=== PATIENT | male | born 1975 | race Caucasian/White ===

== ENCOUNTER 2021-12-22 15:43 | Inpatient (IN) | payer OTHER ==
[2021-12-22] MEDS ORDERED: DIAZEPAM 5 MG/ML 2 ML INJ IM ONE (19:04)
--- NOTE | 2021-12-22 19:10 | ED ---
General Adult HPI - General Chief complaint: Altered Mental Status Stated complaint: altered, possible dehydration Source: patient, family Mode of arrival: wheelchair Limitations: altered mental status - History of Present Illness Initial comments: 46-year-old male with diagnosis of neurosyphilis presents to the emergency room and altered mental status. Family is at bedside and provides the history. Patient had an episode of altered mental status last fall. He was taken into [facility] and workup diagnosed him as positive for neurosyphilis and dementia. Received 4 weeks worth of penicillin treatment through a PICC line. He was residing with friends in [place]. Father received a call approximately one month ago stating that his friends were having difficulty caring for him. Father drove out to [place] to bring the patient home. Originally upon arrival home the patient was adjusting well. He was eating drinking and had a fairly appropriate behavior. Over the past week the patient has become very agitated, paranoid. He has stopped eating and drinking almost completely. He is not on any current treatment. Does not follow with a neurologist. No other medical diagnoses. Remainder of the HPI is limited because the patient's current medical condition. - Related Data Home Medications Medication Instructions Recorded Confirmed No Known Home Medications 12/22/21 12/22/21 Allergies Allergy/AdvReac Type Severity Reaction Status Date / Time No Known Allergies Allergy Verified 12/22/21 21:18 Review of Systems ROS Statement: Those systems with pertinent positive or pertinent negative responses have been documented in the HPI. ROS Other: All systems not noted in ROS Statement are negative. Past Medical History Additional Past Medical History / Comment(s): Neuro syphillis- that caused dementia. History of Any Multi-Drug Resistant Organisms: None Reported Past Surgical History: No Surgical Hx Reported Past Psychological History: Anxiety, Depression Smoking Status: Former smoker Past Alcohol Use History: Occasional Past Drug Use History: None Reported General Exam Limitations: altered mental status Course Vital Signs 12/22/21 12/22/21 12/22/21 16:25 21:06 22:00 Pulse Rate 121 H 99 84 Respiratory 20 22 Rate Blood Pressure 135/96 121/84 O2 Sat by Pulse 96 99 97 Oximetry 12/22/21 22:46 Pulse Rate 80 Respiratory 22 Rate Blood Pressure 106/76 O2 Sat by Pulse 80 L Oximetry EKG Findings - EKG Comments: EKG Findings:: EKG demonstrates sinus tachycardia with a ventricular rate of 100. GA interval 127. QRS 90. QTC of 405. No acute ST segment elevations. Mild ST depression in 2, 3 and aVF Medical Decision Making - Medical Decision Making Upon arrival patient was placed into room 4. He is extremely agitated and unwilling to cooperate. He was given 10 mg of IM Valium for sedation which does not have any effect on the patient. He is then given 250 mg of IM ketamine. Laboratory studies, urinalysis and CT are performed. I did review the patient's labs. He does have 3+ ketones in the urine. CT of the brain is negative. Due to his agitation and altered mental status with dehydration did recommend admission. Spoke with Dr. Lagos. He feels the patient should be placed under an inpatient status. Because of this I did call and make an spoke with them in regards to admission for which they did accept. Patient is currently pending about on the floor - Lab Data Result diagrams: 12/22/21 21:03 12/22/21 21:03 Lab Results 12/22/21 12/22/21 12/22/21 Range/Units 21:03 21:03 21:03 WBC 8.3 (3.8-10.6) k/uL RBC 5.19 (4.30-5.90) m/uL Hgb 16.6 (13.0-17.5) gm/dL Hct 48.3 (39.0-53.0) % MCV 93.1 (80.0-100.0) fL MCH 31.9 (25.0-35.0) pg MCHC 34.2 (31.0-37.0) g/dL RDW 13.1 (11.5-15.5) % Plt Count 240 (150-450) k/uL MPV 7.4 Neutrophils % 80 % Lymphocytes % 15 % Monocytes % 4 % Eosinophils % 0 % Basophils % 1 % Neutrophils # 6.6 (1.3-7.7) k/uL Lymphocytes # 1.2 (1.0-4.8) k/uL Monocytes # 0.3 (0-1.0) k/uL Eosinophils # 0.0 (0-0.7) k/uL Basophils # 0.0 (0-0.2) k/uL PT 11.1 (9.0-12.0) sec INR 1.0 (<1.2) APTT 23.1 (22.0-30.0) sec Sodium 141 (137-145) mmol/L Potassium 4.1 (3.5-5.1) mmol/L Chloride 103 (98-107) mmol/L Carbon Dioxide 21 L (22-30) mmol/L Anion Gap 17 mmol/L BUN 18 (9-20) mg/dL Creatinine 1.06 (0.66-1.25) mg/dL Est GFR (CKD-EPI)AfAm >90 (>60 ml/min/1.73 sqM) Est GFR (CKD-EPI)NonAf 83 (>60 ml/min/1.73 sqM) Glucose 96 (74-99) mg/dL Calcium 9.8 (8.4-10.2) mg/dL Total Bilirubin 1.0 (0.2-1.3) mg/dL AST 34 (17-59) U/L ALT 24 (4-49) U/L Alkaline Phosphatase 66 (38-126) U/L Troponin I (0.000-0.034) ng/mL Total Protein 7.6 (6.3-8.2) g/dL Albumin 5.0 (3.5-5.0) g/dL Urine Color Urine Appearance (Clear) Urine pH (5.0-8.0) Ur Specific [place] (1.001-1.035) Urine Protein (Negative) Urine Glucose (UA) (Negative) Urine Ketones (Negative) Urine Blood (Negative) Urine Nitrite (Negative) Urine Bilirubin (Negative) Urine Urobilinogen (<2.0) mg/dL Ur Leukocyte Esterase (Negative) Urine RBC (0-5) /hpf Urine WBC (0-5) /hpf Hyaline Casts (0-2) /lpf Urine Mucus (None) /hpf Urine Opiates Screen (NotDetected) Ur Oxycodone Screen (NotDetected) Urine Methadone Screen (NotDetected) Ur Propoxyphene Screen (NotDetected) Ur Barbiturates Screen (NotDetected) U Tricyclic Antidepress (NotDetected) Ur Phencyclidine Scrn (NotDetected) Ur Amphetamines Screen (NotDetected) U Methamphetamines Scrn (NotDetected) U Benzodiazepines Scrn (NotDetected) Urine Cocaine Screen (NotDetected) U Marijuana (THC) Screen (NotDetected) 12/22/21 12/22/21 Range/Units 21:03 21:05 WBC (3.8-10.6) k/uL RBC (4.30-5.90) m/uL Hgb (13.0-17.5) gm/dL Hct (39.0-53.0) % MCV (80.0-100.0) fL MCH (25.0-35.0) pg MCHC (31.0-37.0) g/dL RDW (11.5-15.5) % Plt Count (150-450) k/uL MPV Neutrophils % % Lymphocytes % % Monocytes % % Eosinophils % % Basophils % % Neutrophils # (1.3-7.7) k/uL Lymphocytes # (1.0-4.8) k/uL Monocytes # (0-1.0) k/uL Eosinophils # (0-0.7) k/uL Basophils # (0-0.2) k/uL PT (9.0-12.0) sec INR (<1.2) APTT (22.0-30.0) sec Sodium (137-145) mmol/L Potassium (3.5-5.1) mmol/L Chloride (98-107) mmol/L Carbon Dioxide (22-30) mmol/L Anion Gap mmol/L BUN (9-20) mg/dL Creatinine (0.66-1.25) mg/dL Est GFR (CKD-EPI)AfAm (>60 ml/min/1.73 sqM) Est GFR (CKD-EPI)NonAf (>60 ml/min/1.73 sqM) Glucose (74-99) mg/dL Calcium (8.4-10.2) mg/dL Total Bilirubin (0.2-1.3) mg/dL AST (17-59) U/L ALT (4-49) U/L Alkaline Phosphatase (38-126) U/L Troponin I <0.012 (0.000-0.034) ng/mL Total Protein (6.3-8.2) g/dL Albumin (3.5-5.0) g/dL Urine Color Yellow Urine Appearance Clear (Clear) Urine pH 5.5 (5.0-8.0) Ur Specific [place] 1.037 H (1.001-1.035) Urine Protein 1+ H (Negative) Urine Glucose (UA) Negative (Negative) Urine Ketones 3+ H (Negative) Urine Blood Trace H (Negative) Urine Nitrite Negative (Negative) Urine Bilirubin 1+ H (Negative) Urine Urobilinogen 2.0 (<2.0) mg/dL Ur Leukocyte Esterase Negative (Negative) Urine RBC 1 (0-5) /hpf Urine WBC 1 (0-5) /hpf Hyaline Casts 5 H (0-2) /lpf Urine Mucus Rare H (None) /hpf Urine Opiates Screen Not Detected (NotDetected) Ur Oxycodone Screen Not Detected (NotDetected) Urine Methadone Screen Not Detected (NotDetected) Ur Propoxyphene Screen Not Detected (NotDetected) Ur Barbiturates Screen Not Detected (NotDetected) U Tricyclic Antidepress Not Detected (NotDetected) Ur Phencyclidine Scrn Not Detected (NotDetected) Ur Amphetamines Screen Not Detected (NotDetected) U Methamphetamines Scrn Not Detected (NotDetected) U Benzodiazepines Scrn Not Detected (NotDetected) Urine Cocaine Screen Not Detected (NotDetected) U Marijuana (THC) Screen Not Detected (NotDetected) Disposition Clinical Impression: Encephalopathy acute, Dehydration, Neurosyphilis Disposition: ADMITTED IP TO THIS [facility] Condition: Serious Is patient prescribed a controlled substance at d/c from ED?: No Referrals: None,Stated [Primary Care Provider] - 1-2 days Decision to Admit Reason: Admit from EC Decision Date: 12/22/21 Decision Time: 22:47
[2021-12-22] MEDS ORDERED: KETAMINE 50 MG/ML 10 ML VIAL IM ONE (20:18)
--- NOTE | 2021-12-22 21:02 | CT ---
EXAMINATION TYPE: CT brain wo con DATE OF EXAM: 12/22/2021 COMPARISON: None available HISTORY: AMS. hx of [employer] CT DLP: 1166.4 mGycm. Automated Exposure Control for Dose Reduction was Utilized. TECHNIQUE: CT scan of the head is performed without contrast. FINDINGS: There is no acute intracranial hemorrhage, mass effect, or midline shift identified. The ventricles and sulci are within normal limits in size. The globes are intact and the visualized sin uses are clear. IMPRESSION: No acute intracranial hemorrhage, mass effect, or midline shift is seen.
[2021-12-22 21:22] LABS: Appearance,Urine Clear (Clear); Bilirubin,Urine 1+ (Negative); Blood,Urine Trace (Negative); Color,Urine Yellow; Glucose,Urine (UA) Negative (Negative); Hyaline Casts,Urine 5 /lpf (0-2); Ketones,Urine 3+ (Negative); Leukocyte Esterase,Urine Negative (Negative); Mucus,Urine Rare /hpf; Nitrite,Urine Negative (Negative); PH, Urine 5.5 (5.0-8.0); Protein,Urine 1+ (Negative); RBC,Urine 1 /hpf (0-5); Specific Gravity,Urine 1.037 (1.001-1.035); WBC,Urine 1 /hpf (0-5)
[2021-12-22 21:22] LABS: Basophils % (A) 1 %; Eosinophils % (A) 0 %; HCT 48.3 % (39.0-53.0); HGB 16.6 gm/dL (13.0-17.5); Lymphocytes # (A) 1.2 k/uL (1.0-4.8); Lymphocytes % (A) 15 %; MCH 31.9 pg (25.0-35.0); MCHC 34.2 g/dL (31.0-37.0); MCV 93.1 fL (80.0-100.0); Mean Platelet Volume 7.4; Monocytes # (A) 0.3 k/uL (0-1.0); Monocytes % (A) 4 %; Neutrophils # (A) 6.6 k/uL (1.3-7.7); Neutrophils % (A) 80 %; Platelet Count 240 k/uL (150-450); RBC 5.19 m/uL (4.30-5.90); RDW 13.1 % (11.5-15.5); WBC 8.3 k/uL (3.8-10.6)
[2021-12-22 21:26] LABS: ALT 24 U/L (4-49); AST 34 U/L (17-59); African American GFR (CKD) >90 (>60 ml/min/1.73 sqM); Alkaline Phosphatase 66 U/L (38-126); Anion Gap 17 mmol/L; Blood Urea Nitrogen 18 mg/dL (9-20); Calcium 9.8 mg/dL (8.4-10.2); Carbon Dioxide 21 mmol/L (22-30); Chloride 103 mmol/L (98-107); Glucose 96 mg/dL (74-99); Non-African American GFR(CKD) 83 (>60 ml/min/1.73 sqM); Potassium 4.1 mmol/L (3.5-5.1); Sodium 141 mmol/L (137-145); Total Protein 7.6 g/dL (6.3-8.2)
[2021-12-22 21:30] LABS: Partial Thromboplastin Time 23.1 sec (22.0-30.0); Prothrombin Time 11.1 sec (9.0-12.0)
--- NOTE | 2021-12-22 21:30 | XR ---
EXAMINATION TYPE: XR chest 1V DATE OF EXAM: 12/22/2021 COMPARISON: NONE HISTORY: Altered mental status TECHNIQUE: Single frontal view of the chest is obtained. FINDINGS: There is no focal air space opacity, pleural effusion, or pneumothorax seen. The cardiac silhouette size is within normal limits. The osseous structures are intact. IMPRESSION: No acute process.
[2021-12-22 21:31] LABS: Amphetamine Screen,Urine Not Detected (NotDetected); Barbiturate Screen,Urine Not Detected (NotDetected); Benzodiazepines Screen,Urine Not Detected (NotDetected); Cocaine Screen,Urine Not Detected (NotDetected); Methadone Screen, Urine Not Detected (NotDetected); Opiate Screen,Urine Not Detected (NotDetected); Oxycodone Screen, Urine Not Detected (NotDetected); Phencyclidine Screen,Urine Not Detected (NotDetected); Tricyclic Antidepressant,Urine Not Detected (NotDetected); Urn Cannabinoid Scrn Not Detected (NotDetected)
[2021-12-22] MEDS ORDERED: LORazepam 2 MG/ML INJ IV STA (21:33)
[2021-12-22] MEDS ORDERED: LORazepam 2 MG/ML INJ IV PRN (22:47)
[2021-12-22] MEDS ORDERED: NALOXONE 0.4 MG/ML 1 ML VIAL IV PRN (22:47)
[2021-12-22] MEDS: SODIUM CHLORIDE 0.9% 1,000 ML IV SCH (22:54)
[2021-12-23] MEDS: LORazepam 2 MG/ML INJ IV PRN ×5 (00:06→21:54)
[2021-12-23] MEDS: SODIUM CHLORIDE 0.9% 1,000 ML IV SCH ×3 (06:55→23:28)
[2021-12-23 07:25] LABS: African American GFR (CKD) >90 (>60 ml/min/1.73 sqM); Anion Gap 12 mmol/L; Blood Urea Nitrogen 16 mg/dL (9-20); Carbon Dioxide 24 mmol/L (22-30); Chloride 105 mmol/L (98-107); Glucose 82 mg/dL (74-99); Non-African American GFR(CKD) >90 (>60 ml/min/1.73 sqM); Potassium 4.5 mmol/L (3.5-5.1); Sodium 141 mmol/L (137-145)
[2021-12-23 07:29] LABS: Basophils # (A) 0.1 k/uL (0-0.2); Basophils % (A) 1 %; Eosinophils # (A) 0.1 k/uL (0-0.7); Eosinophils % (A) 1 %; HCT 44.3 % (39.0-53.0); HGB 14.4 gm/dL (13.0-17.5); Lymphocytes # (A) 1.8 k/uL (1.0-4.8); Lymphocytes % (A) 22 %; MCHC 32.6 g/dL (31.0-37.0); Mean Platelet Volume 7.6; Monocytes # (A) 0.4 k/uL (0-1.0); Monocytes % (A) 5 %; Neutrophils # (A) 5.6 k/uL (1.3-7.7); Neutrophils % (A) 69 %; Platelet Count 208 k/uL (150-450); RBC 4.66 m/uL (4.30-5.90); RDW 12.5 % (11.5-15.5); WBC 8.1 k/uL (3.8-10.6)
[2021-12-23] MEDS ORDERED: ONDANSETRON 4 MG/2 ML VIAL IVP PRN (10:02)
[2021-12-23] MEDS ORDERED: FAMOTIDINE 20 MG TAB PO SCH (10:15)
--- NOTE | 2021-12-23 17:51 | P.CNNES ---
History of Present Illness Consult date: 12/23/21 Requesting physician: Felipa Mcclellan Reason for Consult: Acute encephalopathy, neurosyphilis History of Present Illness: Patient is a 46-year-old male was brought to the hospital yesterday at 3:43 PM by patient's father for altered mental status. Patient is sedated from medication because of agitation, slight irritable behavior. Patient's father provided all the history. Patient was diagnosed with dementia related to neurosyphilis in April 2021. He had developed mental status change, would easily get lost. He was hospitalized in [place] in [facility] from 04/26/2021 and discharged on 05/04/2021. Patient has presented with progressive dementia, behavioral problems. He was found to be positive for syphilis. He was diagnosed with neurosyphilis for which he received extended treatment with antibiotic. It was completed. Patient had an EEG performed in the hospital, which was reported as normal. Patient was recommended MRI of the brain, which according to the father was never performed. He had undergone physical therapy, behavioral cognitive therapy. He used to live with his frie nds, but they mentioned that they cannot take care of him therefore he moved back to [place] with his parents. Patient's father believes that his progressively getting worse. Patient is getting very confused, very excited, behaves defiant. He does not take care of his hygiene, not eating well, has not eaten since Friday. Patient gets aggressive towards his mother. He does not act as aggressive with his father. Vital signs on arrival blood pressure 135/96, pulse rate 121, temperature 97.7. Blood test shows normal CBC, PT/PTT, normal CMP, troponin. UA shows negative nitrite. Urine drug screen negative. CT head showed no acute hemorrhage, mass effect or midline shift. I personally reviewed CT of the head in agree with the findings. It does appear that patient has cerebral atrophy, more than patient's age. Chest x-ray shows no acute process. EKG was sinus tachycardia. Patient's father further mentioned that patient used to live with her parents until in his 20s he moved with his friend to [place]. He then moved to [place] for 3 years and then he again went back to [place]. 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 Patient denies alcohol or tobacco or any use of drugs. Review of Systems Patient denies any neck pain, back pain. No numbness or tingling. Denies heada jesus. No pain. Patient admits to having tiredness. Rest of review of systems patient did not cooperate with. ROS unobtainable: due to mental status Past Medical History Additional Past Medical History / Comment(s): Neuro syphillis- that caused dementia. History of Any Multi-Drug Resistant Organisms: None Reported Past Surgical History: No Surgical Hx Reported Past Anesthesia/Blood Transfusion Reactions: No Reported Reaction Past Psychological History: Anxiety, Depression Smoking Status: Former smoker Past Alcohol Use History: Occasional Past Drug Use History: None Reported Medications and Allergies Home Medications Medication Instructions Recorded Confirmed Type No Known Home Medications 12/22/21 12/22/21 History Allergies Allergy/AdvReac Type Severity Reaction Status Date / Time No Known Allergies Allergy Verified 12/22/21 21:18 Physical Examination - Vital Signs Vital Signs: Vital Signs Temp Pulse Pulse Resp BP BP Pulse Ox 12/23/21 07:56 18 12/23/21 07:27 97.7 F 59 L 18 106/75 100 12/22/21 23:35 64 18 111/73 12/22/21 22:46 80 22 106/76 80 L 12/22/21 22:00 84 22 121/84 97 12/22/21 21:06 99 20 135/96 99 12/22/21 16:25 121 H 96 Intake and Output 12/22/21 12/23/21 12/23/21 22:59 06:59 14:59 Intake Total 780 Balance 780 Intake: Intake, IV Titration 780 Amount Sodium Chloride 0.9% 1, 780 000 ml @ 130 mls/hr IV . Q7H42M [facility] Rx#:[id number] Other: Weight 65.771 kg 65.771 kg Patient is a middle aged male, who was sleeping when I arrived. On waking up, patient did answer appropriately, but becomes easily very irritable. Patient is alert awake oriented to time place and person. He knows it is December 2021 and that he is in [facility]. He knows he is in the Hospital and name of the current president. Detail cognitive function testing deferred. Speech and language functions are normal. Attention, concentration and fund of knowledge is adequate. Detail testing deferred. On cranial examination, pupils are round and reacting to light, visual dawkins are full on confrontation, extraocular muscles are intact with no nystagmus. Face is symmetric, tongue protrudes to the midline. Palatal elevation and sensation normal, hearing and shoulder shrug normal, facial sensation normal. Shoulder shrug normal. On muscle strength testing, there is no pronator drift and the strength is normal in arms and legs distally and proximally. Deep tendon reflexes are 3 at the biceps, brachioradialis, 2+ at the knees, 2 ankles and plantars are downgoing bilaterally. Sensory to touch is equal with no neglect. Cerebellar function showed no ataxia for [id number] testing. Tone and bulk of muscles normal. Gait not checked. On general examination, there is no carotid bruit or murmur, S1-S2 audible. Abdomen is soft nontender. No organomegaly, bowel sounds present. Chest is clear to auscultation. Peripheral pulses are present. No edema. Results - Laboratory Findings CBC and BMP: 12/23/21 06:44 12/23/21 06:44 Abnormal Lab Findings: Abnormal Labs 12/22/21 12/22/21 21:03 21:05 Carbon Dioxide 21 L Ur Specific [place] 1.037 H Urine Protein 1+ H Urine Ketones 3+ H Urine Blood Trace H Urine Bilirubin 1+ H Hyaline Casts 5 H Urine Mucus Rare H Assessment and Plan Assessment: * Altered mental status, likely due to dementia related to neurosyphilis diagnosed in April 2021. Patient has completed treatment of neurosyphilis while in [place]. * Dementia with behavioral disturbance. * Aggressive behavior, irritability due to above. Plan: * MRI brain with and without contrast * EEG * Psychiatry consultation * Obtain medical records from patient's neurologist in [place] and records from [facility] from previous admission. * Discussed with patient's dad in detail. * Dr. Daniel Marina Will resume neurology service in the morning. Thank you for the consult. Time with Patient: Greater than 30
[2021-12-23] MEDS: FAMOTIDINE 20 MG/2 ML VIAL IV SCH (20:07)
[2021-12-23] MEDS: HEPARIN SODIUM,PORCINE/PF 5,000 UNIT/0.5 ML SYRINGE SQ SCH (20:07)
--- NOTE | 2021-12-24 00:13 | P.HPIM ---
History of Present Illness H&P Date: 12/23/21 Chief Complaint: Altered mental status Patient is a 46-year-old male with a known history of recently treated neurosyphilis in May 2021 and subacute dementia secondary to neurosyphilis, anxiety/depression. History of smoking was brought to the hospital by his family due to altered mental status. Patient has been agitated and aggressive at times. Patient is currently lying in the bed and awake alert and is able to answer simple questions but seems to be confused. Patient has not been eating or drinking for the past 1 week. He is becoming paranoid and very agitated. Patient was recommended to get MRI and EEG by his neurologist. Patient does not have any fever or chills. No nausea or vomiting or diarrhea. No complaints of chest pain or shortness of breath Patient was previously in [place] and was taken to [facility] due to altered mental status and was found to have neurosyphilis. Patient received penicillin treatment for 4 weeks in May 2021. Patient's friends were not able to take care of him and his father drove to [place] to bring the patient home. Patient was raised up and [place]. Currently patient is not taking any medications. CT head showed no acute intracranial hemorrhage mass-effect or midline shift is seen. EKG showed sinus tachycardia. Laboratory data showed WBC 8.3 hemoglobin 16.6 and platelets 240 Sodium 141 potassium 4.1 chloride 103 bicarb is 21 BUN 17 and creatinine 1.06. Liver enzymes are not elevated troponin x1 negative and albumin 5.0 urinalysis is negative for infection and 3+ ketones. UDS negative Treponema pallidum antibody reactive. Review of Systems Complete review of systems could not be obtained from the patient except as per HPI. Past Medical History Additional Past Medical History / Comment(s): Neuro syphillis- that caused dementia. History of Any Multi-Drug Resistant Organisms: None Reported Past Surgical History: No Surgical Hx Reported Past Anesthesia/Blood Transfusion Reactions: No Reported Reaction Past Psychological History: Anxiety, Depression Smoking Status: Former smoker Past Alcohol Use History: Occasional Past Drug Use History: None Reported Medications and Allergies Home Medications Medication Instructions Recorded Confirmed Type No Known Home Medications 12/22/21 12/22/21 History Allergies Allergy/AdvReac Type Severity Reaction Status Date / Time No Known Allergies Allergy Verified 12/22/21 21:18 Physical Exam Vitals: Vital Signs Temp Pulse Pulse Resp BP BP Pulse Ox 12/23/21 07:56 18 12/23/21 07:27 97.7 F 59 L 18 106/75 100 12/22/21 23:35 64 18 111/73 12/22/21 22:46 80 22 106/76 80 L 12/22/21 22:00 84 22 121/84 97 12/22/21 21:06 99 20 135/96 99 12/22/21 16:25 121 H 96 Intake and Output 12/22/21 12/23/21 12/23/21 22:59 06:59 14:59 Intake Total 780 Balance 780 Intake: Intake, IV Titration 780 Amount Sodium Chloride 0.9% 1, 780 000 ml @ 130 mls/hr IV . Q7H42M [facility] Rx#:[id number] Other: Weight 65.771 kg 65.771 kg PHYSICAL EXAMINATION: Patient is lying in the bed. Awake alert but disoriented. HEENT: Normocephalic. Neck is supple. Pupils reactive. Nostrils clear. Oral cavity is dry.. Neck reveals no JVD, carotid bruits, or thyromegaly. CHEST EXAMINATION: Trachea is central. Symmetrical expansion. Lung dawkins clear to auscultation and percussion. CARDIAC: Normal S1, S2 with no gallops. No murmurs ABDOMEN: Soft. Bowel sounds normal. No organomegaly. No abdominal bruits. Extremities: reveal no edema. No clubbing or cyanosis Neurologically awake, alert, cognitive impairment. No gross focal deficits noted Skin: No rash or skin lesions. Psychiatric: Cooperative could not be assessed completely. Musculoskeletal: No joint swelling or deformity. Results CBC & Chem 7: 12/23/21 06:44 12/23/21 06:44 Labs: Abnormal Lab Results - Last 24 Hours (Table) 12/22/21 12/22/21 Range/Units 21:03 21:05 Carbon Dioxide 21 L (22-30) mmol/L Ur Specific [place] 1.037 H (1.001-1.035) Urine Protein 1+ H (Negative) Urine Ketones 3+ H (Negative) Urine Blood Trace H (Negative) Urine Bilirubin 1+ H (Negative) Hyaline Casts 5 H (0-2) /lpf Urine Mucus Rare H (None) /hpf Thrombosis Risk Factor Assmnt - DVT/VTE Prophylaxis DVT/VTE Prophylaxis: Pharmacologic Prophylaxis ordered - Choose All That Apply Any of the Below Risk Factors Present?: Yes Each Factor Represents 1 point: Age 41-60 years Thrombosis Risk Factor Assessment Total Risk Factor Score: 1 Thrombosis Risk Factor Assessment Level: Low Risk Assessment and Plan Assessment: Altered mental status/paranoid ideation possible dementia with behavioral changes History of neurosyphilis and was treated in May 2021 in [place]. Dehydration volume depletion refusing to take oral intake. DVT prophylaxis Heparin subcu Plan: Patient will be continued on IV hydration with normal saline and increase oral intake. We will get records from the previous hospital. MRI of the brain EEG was ordered and psychiatry was consulted as well. We will follow closely. D iscussed with his father at bedside in detail.
[2021-12-24] MEDS: LORazepam 2 MG/ML INJ IV PRN ×2 (07:47→22:18)
[2021-12-24] MEDS: FAMOTIDINE 20 MG/2 ML VIAL IV SCH ×2 (07:47→22:00)
[2021-12-24] MEDS: HEPARIN SODIUM,PORCINE/PF 5,000 UNIT/0.5 ML SYRINGE SQ SCH ×3 (07:47→22:00)
[2021-12-24] MEDS ORDERED: OLANZapine 10 MG VIAL IM PRN (14:39)
[2021-12-24] MEDS ORDERED: OLANZapine 5 MG TAB PO PRN (14:39)
--- NOTE | 2021-12-24 14:45 | EEG ---
ELECTROENCEPHALOGRAM REPORT DATE OF SERVICE: 12/24/2021 CLINICAL HISTORY: This is a 46-year-old gentleman with altered mental status. The video EEG is obtained to evaluate for seizure epileptiform activity. EEG TYPE: A routine 21-channel EEG is performed with video using the 10/20 electrode system. RELEVANT MEDICATION: The patient is not on any antiepileptic drug. DESCRIPTION: Wakefulness is obtained. During awake state, the background consists of 11 to 12 hertz activity. There is no physiological stage II sleep architecture. There is no focal slowing. Interictal and ictal: There is appearance of sharp-like activity over the right frontal consisting of 18 to 19 hertz without any evolution to other regions. Otherwise no seizure activity noted. ACTIVATION PROCEDURE: Photic stimulation did not evoke a posterior driving response. Hyperventilation was not performed. CLINICAL INTERPRETATION: This is a normal routine EEG. There is no focal slowing, clear epileptiform discharges or seizure on the EEG. Patient have intermittent sharp-like fast activity over the right frontal regions without evolution to seizures. Recommend prolonged EEG as outpatient for further characterization and to rule out any clear epileptiform discharges or seizures. Clinical correlation is recommended. MMODL / IJN: [id number] / MTDD
--- NOTE | 2021-12-24 14:45 | P.PN ---
Subjective Progress Note Date: 12/24/21 I am seeing the patient for the first time during this admission. It seems that patient has altered mental status with history of neurosyphilis and was treated in past. Per father he stated patient had syphilis while at [place], [place] in 2020 and received treatment then was discharged from hospital. He followed up with neurologist as outpatient. The father feels patient has fluctuation of mentation since he has moved back with his parents in the last 4 weeks. No seizure-like activity. Please refer to Dr. Rubin for further details. Objective - Vital Signs Vital signs: Vital Signs Temp 98.4 F 12/23/21 18:08 Pulse 96 12/24/21 07:10 Resp 17 12/24/21 07:10 BP 142/76 12/23/21 18:08 Pulse Ox 97 12/23/21 18:08 FiO2 Intake & Output 12/23/21 12/24/21 12/24/21 18:59 06:59 18:59 Other: # Voids 5 1 # Bowel Movements 1 - Exam GENERAL: The patient is lying in bed and is not in acute distress. NEUROLOGICAL: Limited because of his cooperation. Higher mental function: The patient is awake, alert, oriented to self. He stated he is in the hospital but stated it was general hospital. Correctly stated the current year. He stated the month is November 19. He correctly named objects (pen, watch, glasses). Patient is following simple commands. No aphasia and no neglect. Cranial nerves: EOM is tacking throughout the room. No facial droop. No dysarthria. Rest is limited because of his cooperation. Motor: The strength is hard to assess because of cooperation. He kept on saying nothing is wrong with me. Cerebellum: Unable to assess. Sensation: Unable to assess. 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 Patient has completed treatment of neurosyphilis while in [place]. * Dementia with behavioral disturbance. * Aggressive behavior, irritability due to above. Plan: * MRI brain with and without contrast is pending * EEG is ordered and pending * Ordered TSH, vitamin B12, folate, ammonia level, HIV, herpes 1/2 PCR, syphilis. * Consulted I.D. team. * Psychiatry is consulted. * Obtain medical records from patient's neurologist in [place] and records from [facility] from previous admission. * Will defer the rest of medical management to the primary team. The plan is discussed with the patient's father, psyhciatry team and his nurse. Daniel Marina M.D. Neuro-Hospitalist Time with Patient: Less than 30
--- NOTE | 2021-12-24 14:53 | P.CN ---
Psychiatric Consult - . Consult date: 12/24/21 Consult:: 12/24/21 14:50 IDENTIFYING DATA: This patient is a single, unemployed, 46-year-old male with significant history of neurosyphilis presents to the hospital on 12/22/2021, brought into the hospital for altered mental status. HISTORY OF PRESENT ILLNESS: The patient presented to the hospital on 12/22/2021, brought into the hospital by his family for altered mental status and possible dehydration. The patient has a significant history of neurosyphilis and recently relocated to [place] approximately 4 weeks ago after residing and receiving treatment in [place]. Present at the patient's bedside is his father Otto Alegria who provides collateral information. Proximally 4 weeks ago, the patient's father received a call from the patient's friends that they have been unable to properly take care of the patient. His father drove out to [place] to bring the patient home. The patient was noted to have a significant decline in behavior including increasing agitation, confusion, and a significantly decreased appetite and thirst. As per collateral information obtained by the patient's father, the patient was diagnosed and worked up for neurosyphilis and dementia at [facility] in [place]. He received 4 weeks worth the penicillin treatment through a PICC line. In regards to psychiatric symptoms, the patient vehemently denying any issues regarding his mood or any overt symptoms of psychosis. However, the patient's father reports that the patient has been engaging in conversations with people who were not present and appears to respond to internal stimuli. He also rep orts that the patient has been increasingly agitated. Of concern, the patient has also had a significant decline in his thirst and appetite. The patient has reportedly not been eating over the past few days. The patient does report periods of excessive energy however is vague and is unable to determine how many days he has gone without any sleep. Both patient and his father report no significant history of psychiatric illness prior to the diagnosis of neurosyphilis. The patient vehemently denies any heavy alcohol use, drug use, or any other substance use. The patient does remain guarded regarding his sexual history. He refuses to elaborate. PAST PSYCHIATRIC HISTORY: Patient has no significant psychiatric history. Patient denies being on any psychiatric medications. Patient denies any previous psychiatric hospitalizations. Patient denies any psychiatric outpatient follow- up. Patient denies any history of suicide attempts in the past. PAST MEDICAL HISTORY: Additional Past Medical History / Comment(s): Neuro syphillis- that caused dementia. History of Any Multi-Drug Resistant Organisms: None Reported Past Surgical History: No Surgical Hx Reported Past Anesthesia/Blood Transfusion Reactions: No Reported Reaction Past Psychological History: Anxiety, Depression Smoking Status: Former smoker Past Alcohol Use History: Occasional Past Drug Use History: None Reported ALLERGIES: NO KNOWN DRUG ALLERGIES CHEMICAL DEPENDENCY HISTORY: Patient denies any tobacco, alcohol, marijuana, or illicit drug use. FAMILY PSYCHIATRIC/SUBSTANCE USE HISTORY: No reported family psychiatric history. SOCIAL HISTORY: Patient was residing in [place] and recently relocated back to [place] approximately 4 weeks ago after his friends contacted the patient's family stating that they were no longer able to take care of him due to his decline in mentation and behavior. 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 The patient refuses to elaborate on any sexual history. MENTAL STATUS EXAM: General Appearance: Patient appears to be stated age is alert however appears to be an uncooperative. Slightly disheveled hygiene and grooming. Poor eye contact. Behavior: Patient is lying down in bed and displays elevated psychomotor activity. Speech: Patient's speech is nonspontaneous, minimal, jude. Mood/Affect: Patient reports their mood is "I'm doing fine. I don't need any help." Affect is irritable. Suicidality/Homicidality: Patient is currently denying any suicidal or homicidal ideation. Perceptions: Patient is currently denying any auditory or visual hallucinations. Though content/process: The patient is not endorsing any delusional thought content. Memory and concentration: Patient is alert and oriented to person, place, however incorrectly states the date. Judgment and insight: poor IMPRESSIONS: Neurosyphilis Mood disorder, unspecified - suspect bipolar symptoms secondary to neurosyphilis PLAN: -Agree with medical and neurological evaluation. -At this time patient DOES meet criteria for inpatient psychiatric admission once he is medically and neurologically cleared. The patient's father agrees to sign a petition for mental health treatment for this patient as the patient expresses no desire to engage in any mental health services or any neurological evaluation. -Would recommend the following medication changes/additions: At this time, the patient does have a return of his medications. We will start Risperdal 1 mg by mouth twice a day for mood stabilization. Zyprexa when necessary for agitation -Recommend one-to-one sitter for safety. -Cannot leave AMA at this time. Patient will need a petition and certification if attempting to leave AMA. -Will continue to follow along 12/24/21 14:53
[2021-12-24] MEDS: risperiDONE 1 MG TAB PO SCH (22:00)
[2021-12-24] MEDS: SODIUM CHLORIDE 0.9% 1,000 ML IV SCH ×2 (23:37→23:38)
--- NOTE | 2021-12-24 23:38 | P.PN ---
Subjective Progress Note Date: 12/24/21 Patient is a 46-year-old male with a known history of recently treated neurosyphilis in May 2021 and subacute dementia secondary to neurosyphilis, anxiety/depression. History of smoking was brought to the hospital by his family due to altered mental status. Patient has been agitated and aggressive a t times. Patient is currently lying in the bed and awake alert and is able to answer simple questions but seems to be confused. Patient has not been eating or drinking for the past 1 week. He is becoming paranoid and very agitated. Patient was recommended to get MRI and EEG by his neurologist. Patient does not have any fever or chills. No nausea or vomiting or diarrhea. No complaints of chest pain or shortness of breath Patient was previously in [place] and was taken to [facility] due to altered mental status and was found to have neurosyphilis. Patient received penicillin treatment for 4 weeks in May 2021. Patient's friends were not able to take care of him and his father drove to [place] to bring the patient home. Patient was raised up and [place]. Currently patient is not taking any medications. CT head showed no acute intracranial hemorrhage mass-effect or midline shift is seen. EKG showed sinus tachycardia. Laboratory data showed WBC 8.3 hemoglobin 16.6 and platelets 240 Sodium 141 potassium 4.1 chloride 103 bicarb is 21 BUN 17 and creatinine 1.06. Liver enzymes are not elevated troponin x1 negative and albumin 5.0 urinalysis is negative for infection and 3+ ketones. UDS negative Treponema pallidum antibody reactive. 12/21/2021. Patient is currently lying in the bed. Awake alert but could not provide any history at this time. No complaints of chest pain or shortness breath. No other acute overnight issues. Patient was agitated at times. Patient undergoing neurological work-up including EEG and MRI of the brain pending at this time. Neurology is on board. Patient was seen by psychiatry and recommended inpatient psychiatric admission. Continue with Risperdal and Zyprexa as needed. Laboratories are reviewed. Current medications reviewed. Objective - Vital Signs Vital signs: Vital Signs Temp 98.0 F 12/24/21 19:34 Pulse 88 12/24/21 19:34 Resp 18 12/24/21 19:34 BP 130/79 12/24/21 19:34 Pulse Ox 100 12/24/21 19:34 FiO2 Intake & Output 12/24/21 12/24/21 12/25/21 06:59 18:59 06:59 Intake Total 1080 Balance 1080 Intake: Oral 1080 Other: # Voids 1 4 - Exam PHYSICAL EXAMINATION: Patient is lying in the bed. Awake alert but disoriented. HEENT: Normocephalic. Neck is supple. Pupils reactive. Nostrils clear. Oral cavity is dry.. Neck reveals no JVD, carotid bruits, or thyromegaly. CHEST EXAMINATION: Trachea is central. Symmetrical expansion. Lung dawkins clear to auscultation and percussion. CARDIAC: Normal S1, S2 with no gallops. No murmurs ABDOMEN: Soft. Bowel sounds normal. No organomegaly. No abdominal bruits. Extremities: reveal no edema. No clubbing or cyanosis Neurologically awake, alert, cognitive impairment. No gross focal deficits n oted Skin: No rash or skin lesions. Psychiatric: Cooperative could not be assessed completely. Musculoskeletal: No joint swelling or deformity. - Labs CBC & Chem 7: 12/23/21 06:44 12/23/21 06:44 Assessment and Plan Assessment: Altered mental status/paranoid ideation possible dementia with behavioral changes History of neurosyphilis and was treated in May 2021 in [place]. Dehydration volume depletion refusing to take oral intake. DVT prophylaxis Heparin subcu Plan: Patient will be continued on IV hydration with normal saline and increase oral intake. We will get records from the previous hospital. MRI of the brain EEG was ordered and psychiatry was consulted . Patient was started on Risperdal twice daily and Zyprexa as needed. Patient does meet inpatient psychiatric admission criteria. Currently was admitted. One-to-one sitter. We will follow closely. Discussed with his father at bedside in detail. Time with Patient: Greater than 30
--- NOTE | 2021-12-25 00:01 | P.CONS ---
History of Present Illness - Reason for Consult Consult date: 12/24/21 - History of Present Illness Patient is a 46-year-old male who was diagnosed with a neurosyphilis end of April 2021 in [place] for which the patient has been treated with IV benzathine penicillin x2 weeks followed by a dose of intramuscular benzathine penicillin a week later, patient denies having any new sexual partner after his episode of neurosyphilis patient presented to the [facility] ER on 12/22/2021 for evaluation of mental status changes, apparently the patient has not been eating or drinking patient becomes very agitated and paranoid no clear history of any fever or any chills with the symptoms the patient was evaluated on arrival to the ER the patient was afebrile and no fever had been recorded subsequently patient did have normal white count with no left shift kidney function has been normal liver enzymes are normal urine has been negative drug screen was negative Treponema pallidum antibodies came back positive patient did have a CT of the brain no acute intracranial hemorrhage or mass- effect infectious disease was consulted due to concern for history of neurosyphilis and continuation of confusion Past Medical History Additional Past Medical History / Comment(s): Neuro syphillis- that caused dementia. History of Any Multi-Drug Resistant Organisms: None Reported Past Surgical History: No Surgical Hx Reported Past Anesthesia/Blood Transfusion Reactions: No Reported Reaction Past Psychological History: Anxiety, Depression Smoking Status: Former smoker Past Alcohol Use History: Occasional Past Drug Use History: None Reported Medications and Allergies Home Medications Medication Instructions Recorded Confirmed Type No Known Home Medications 12/22/21 12/22/21 History Allergies Allergy/AdvReac Type Severity Reaction Status Date / Time No Known Allergies Allergy Verified 12/22/21 21:18 Physical Exam Vitals: Vital Signs Temp Pulse Resp BP Pulse Ox 12/24/21 07:10 96 17 12/23/21 18:08 98.4 F 96 17 142/76 97 Intake and Output 12/23/21 12/24/21 12/24/21 22:59 06:59 14:59 Other: # Voids 5 1 # Bowel Movements 1 Results CBC & Chem 7: 12/23/21 06:44 12/23/21 06:44 Labs: Abnormal Lab Results - Last 24 Hours (Table) 12/23/21 Range/Units 06:44 Treponema pallidum Ab Reactive A (Nonreactive) Assessment and Plan Plan: 1patient with a history of neurosyphilis for which the patient seem to have received adequate antibiotic therapy in May 2021 now presented to the hospital with some confusion and decreased oral intake patient currently with no fever did not have elevated white count no evidence of any neck rigidity and the patient mention no new sexual partners. 2we will check inflammatory markers and HIV testing. 3recommending CSF examination and will check CSF VDRL. Father at the bedside multiple questions were answered in layman term We will follow on clinical condition and cultures to further adjust medication if needed Thank you for this consultation will follow this patient along with you Time with Patient: Greater than 30
[2021-12-25] MEDS: LORazepam 2 MG/ML INJ IV PRN ×2 (02:19→11:47)
[2021-12-25 06:28] LABS: HIV 2 AB Non-Reactive (Non-Reactive); HIV AB P24 Non-Reactive (Non-Reactive); HIV P24 AG Non-Reactive (Non-Reactive)
[2021-12-25] MEDS: SODIUM CHLORIDE 0.9% 1,000 ML IV SCH ×3 (07:02→21:19)
[2021-12-25] MEDS: FAMOTIDINE 20 MG/2 ML VIAL IV SCH ×2 (10:25→21:03)
[2021-12-25] MEDS: HEPARIN SODIUM,PORCINE/PF 5,000 UNIT/0.5 ML SYRINGE SQ SCH ×2 (10:26→21:07)
[2021-12-25] MEDS: risperiDONE 1 MG TAB PO SCH ×2 (10:26→21:07)
--- NOTE | 2021-12-25 11:38 | P.PAINCN ---
History of Present Illness - Reason for Consult Consult date: 12/25/21 - Chief Complaint Consult for neurosyphilis - History of Present Illness Otto is a 46-year-old gentleman presented to the hospital for confusion. His a history of neurosyphilis and I will consult her to do a lumbar puncture. He has some confusion, he appears to ask some questions but his answers are not very congruent. He denies ever having a lumbar puncture in the past but was treated for neurosyphilis in [place] so it's unlikely that he did not have a lumbar puncture at the time. He is not on any blood thinning medications. He last ate at around 10:15 this morning. He is scheduled to have an MRI of the brain today at 2:15. Review of Systems Constitutional: Reports chronic headaches, Reports malaise Respiratory: Denies cough Gastrointestinal: Denies abdominal pain, Denies diarrhea, Denies nausea, Denies vomiting Neurological: Reports change in mentation, Reports confusion Past Medical History Additional Past Medical History / Comment(s): Neuro syphillis- that caused dementia. History of Any Multi-Drug Resistant Organisms: None Reported Past Surgical History: No Surgical Hx Reported Past Anesthesia/Blood Transfusion Reactions: No Reported Reaction Past Psychological History: Anxiety, Depression Smoking Status: Former smoker Past Alcohol Use History: Occasional Past Drug Use History: None Reported Medications and Allergies Home Medications Medication Instructions Recorded Confirmed Type No Known Home Medications 12/22/21 12/22/21 History Allergies Allergy/AdvReac Type Severity Reaction Status Date / Time No Known Allergies Allergy Verified 12/22/21 21:18 Physical Exam Vitals: Vital Signs Temp Pulse Resp BP Pulse Ox 12/25/21 08:00 86 16 12/25/21 01:39 97.6 F 86 16 135/85 100 12/24/21 20:00 16 12/24/21 19:34 98.0 F 88 18 130/79 100 Intake and Output 12/24/21 12/25/21 12/25/21 22:59 06:59 14:59 Intake Total 1080 Balance 1080 Intake: Oral 1080 Other: # Voids 2 Patient was not open to examination, he appeared to be awake and alert but not oriented. His answers were slightly confusing. He appears to be moving his extremities equally. No meaningful physical exam was completed. Results CBC & Chem 7: 12/23/21 06:44 12/23/21 06:44 Labs: Abnormal Lab Results - Last 24 Hours (Table) 12/23/21 Range/Units 06:44 RPR Reactive A (Non-Reactive) Assessment and Plan Assessment: #1 altered mental status #2 history of neurosyphilis Plan: I spoke with the patient and explained the test including lumbar puncture and MRI. The reports that he does not want anything done especially being poked anymore. This point I am unsure if we aren't able to do this without being able to consent him. The psychiatrist has mentioned that the patient cannot leave AMA. I think he does need some clarity from the admitting physician about whether or not we can safely do this procedure without his consent. Either way, since he had breakfast at about 10:15 the procedure cannot be done with sedation until after 6 PM this evening. He is scheduled to have an MRI at 2:15. If we are able to do it sometime this evening Dr. Hdez is freezer person and may be able to assist with the procedure. If it cannot be performed today, we can try tomorrow or . PQRS Measure Charge Sheet Measure #130: Documentation of Current Meds in Medical Chart: Patient's medications documented in chart PQRS Narrative: Do You Want the Pneumonia No Vaccine AT THIS TIME? Blood Pressure [Left Arm] 135/85 Blood Pressure 106/76 Pain Intensity [None] 0 Pain Intensity 0 Scale Used Numeric (1 - 10) Home Medications: Ambulatory Orders No Known Home Medications 12/22/21
--- NOTE | 2021-12-25 13:02 | MR ---
EXAMINATION TYPE: MR brain wo/w con DATE OF EXAM: 12/25/2021 COMPARISON: CT brain 12/22/2021 HISTORY: Altered mental status, dementia TECHNIQUE: Multiplanar, multisequence images of the brain and brainstem is performed without and with IV contras t, utilizing 6.5 mL intravenous Gadavist . FINDINGS: Some motion is present. Diffusion weighted images demonstrate no evidence of a recent infarct or other diffusion abnormality. There is no extra-axial fluid collection or significant white matter signal abnormality, some mild nonspecific periventricular hyperintensity on inversion recovery T2-weighted sequences noted. The ve ntricular system and cisternal spaces are normal in size and appearance. There is cortical atrophy pr esent as on CT. Midline structures demonstrate normal morphology, partially empty sella is noted. The craniocervical junction appears within normal limits. Post contrast images demonstrate no abnormal enhancement. Th e dural venous sinuses appear patent. The visualized sinuses are clear and the globes are intact. IMPRESSION: No acute abnormality is evident.
--- NOTE | 2021-12-25 13:10 | P.PN ---
Progress Note - Text Progress Note Date: 12/25/21 Attempted to evaluate the patient but he is currently undergoing MRI. Chart reviewed - patient is refusing prescribed risperdal. Psychiatry will attempt to re-evaluate the patient tomorrow. Mamadou Bermudez MD
--- NOTE | 2021-12-25 17:24 | P.PN ---
Progress Note - Text Progress Note Date: 12/25/21 Attempt to get consent for lumbar puncture, patient refused to sign the consent for lumbar puncture, he said , he may change his mind tomorrow , and we explained to the patient that tomorrow Gopi is scheduled to be difficult to fit him in and is scheduled, because the operating room schedule is extremely busy, and the best time is to do it today, patient refused to have it done tonight.
--- NOTE | 2021-12-25 18:22 | P.PN ---
Subjective Progress Note Date: 12/25/21 The patient is seen at bedside and per nurse he is refusing Lumbar puncture. Upon seeing him he was asleep. Objective - Vital Signs Vital signs: Vital Signs Temp 97.6 F 12/25/21 01:39 Pulse 86 12/25/21 08:00 Resp 16 12/25/21 08:00 BP 135/85 12/25/21 01:39 Pulse Ox 100 12/25/21 01:39 FiO2 Intake & Output 12/24/21 12/25/21 12/25/21 18:59 06:59 18:59 Intake Total 1080 Balance 1080 Intake: Oral 1080 Other: # Voids 4 2 - Exam GENERAL: The patient is lying in bed and is not in acute distress. NEUROLOGICAL: Limited because since asleep. SOME OF THE WORK-UP: Finding B12 was 579 Serum folate was more than 20 TSH is 0.79. HIV 1 and 2 antibody is nonreactive. Treponema pallidum antibody and RPR is reactive titer is 1:128 Routine EEG is normal. There is no focal slowing, epileptiform discharges or seizure on EEG. MR the brain is reported as no acute abnormality is evident. 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 Patient has completed treatment of neurosyphilis while in [place]. * Dementia with behavioral disturbance. * Aggressive behavior, irritability due to above. Plan: * I.D. team is on board and recommended lumbar puncture but patient refused. * Treponema pallidum antibody and RPR is reactive titer is 1:128 * Consider ambulatory 2.5 hour EEG as outpatient if continues altered. * Psychiatry is on board. * Obtain medical records from patient's neurologist in [place] and records from [facility] from previous admission. * Will defer the rest of medical management to the primary team. * Patient needs to follow-up with neurologist and I.D. team as outpatient within 2 weeks. Recommend Neuropsych evaluation as outpatient. The plan is discussed with the patient's nurse. If patient continues to refuse Lumbar Puncture no additional testing is needed and he is clear from neurological perspective. Daniel Marina M.D. Neuro-Hospitalist Time with Patient: Less than 30
--- NOTE | 2021-12-25 18:28 | P.PN ---
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 History of smoking was brought to the hospital by his family due to altered mental status. Patient has been agitated and aggressive at times. Patient is currently lying in the bed and awake alert and is able to answer simple questions but seems to be confused. Patient has not been eating or drinking for the past 1 week. He is becoming paranoid and very agitated. Patient was recommended to get MRI and EEG by his neurologist. Patient does not have any fever or chills. No nausea or vomiting or diarrhea. No complaints of chest pain or shortness of breath Patient was previously in [place] and was taken to [facility] due to altered mental status and was found to have neurosyphilis. Patient received penicillin treatment for 4 weeks in May 2021. Patient's friends were not able to take care of him and his father drove to [place] to bring the patient home. Patient was raised up and [place]. Currently patient is not taking any medications. CT head showed no acute intracranial hemorrhage mass-effect or midline shift is seen. EKG showed sinus tachycardia. Laboratory data showed WBC 8.3 hemoglobin 16.6 and platelets 240 Sodium 141 potassium 4.1 chloride 103 bicarb is 21 BUN 17 and creatinine 1.06. Liver enzymes are not elevated troponin x1 negative and albumin 5.0 urinalysis is negative for infection and 3+ ketones. UDS negative Treponema pallidum antibody reactive. 12/21/2021. Patient is currently lying in the bed. Awake alert but could not provide any history at this time. No complaints of chest pain or shortness breath. No other acute overnight issues. Patient was agitated at times. Patient undergoing neurological work-up including EEG and MRI of the brain pending at this time. Neurology is on board. Patient was seen by psychiatry and recommended inpatient psychiatric admission. Continue with Risperdal and Zyprexa as needed. Laboratories are reviewed. Subjective: I am resuming the care of the patient today 12/25/2021 Patient today was sitting in bed, he is having good appetite and when I walked in the room patient was eating from his meal tray continuously during the conversation with him. Sitter was at bedside. Patient declined any specific symptom to me Had a lengthy discussion with the patient, I told him about this problem and management plan, he agreed for MRI done today but patient is declined to take any medication while her oral, intramuscular or intravenous, however patient was calm not agitated. Hemodynamically stable. MRI of the brain was negative for acute process. Infectious disease team recommended CSF VDRL testing with lumbar puncture, pain team evaluated patient but he declined to taste. EEG recommended by neurologist was negative, also other workup showing TSH no rmal at 0.79, B12 within the reference range 579, folic more than 20, HIV testing were nonreactive. Objective - Vital Signs Vital signs: Vital Signs Temp 97.6 F 12/25/21 01:39 Pulse 86 12/25/21 08:00 Resp 16 12/25/21 08:00 BP 135/85 12/25/21 01:39 Pulse Ox 100 12/25/21 01:39 FiO2 Intake & Output 12/24/21 12/25/21 12/25/21 18:59 06:59 18:59 Intake Total 1080 Balance 1080 Intake: Oral 1080 Other: # Voids 4 2 - Exam GENERAL: The patient is alert and oriented x3, not in any acute distress. Well developed, well nourished. HEENT: Pupils are round and equally reacting to light. EOMI. No scleral icterus. No conjunctival pallor. Normocephalic, atraumatic. No pharyngeal erythema. No thyromegaly. CARDIOVASCULAR: S1 and S2 present. No murmurs, rubs, or gallops. PULMONARY: Chest is clear to auscultation, no wheezing or crackles. ABDOMEN: Soft, nontender, nondistended, normoactive bowel sounds. No palpable organomegaly. MUSCULOSKELETAL: No joint swelling or deformity. EXTREMITIES: No cyanosis, clubbing, or pedal edema. NEUROLOGICAL: Gross neurological examination did not reveal any focal deficits. SKIN: No rashes. no petechiae. - Labs CBC & Chem 7: 12/23/21 06:44 12/23/21 06:44 Labs: Abnormal Lab Results - Last 24 Hours (Table) 12/23/21 Range/Units 06:44 RPR Reactive A (Non-Reactive) Assessment and Plan Assessment: Altered mental status/mostly secondary to morbid disorder, bipolar disorder is suspected History of neurosyphilis and was treated in May 2021 in [place]. Dehydration volume depletion refusing to take oral intake. Improved Plan: This is a pleasant 46 years old male who presents with mode disorder, refusal of eating and medication Patient is been followed closely by several consultants including psychiatric, infectious disease team, pain management in your surface Problem and management plan and explained for the patient with risks benefits explained. Continue with sitter at bedside Lumbar puncture is recommended however patient declined the test Labs and medication were reviewed.. Continue same treatment. Continue with sy mptomatic treatment. Resume home medication. Monitor lytes and vitals. DVT and GI prophylaxis. Further recommendations as per clinical course of the patient Prognosis is guarded
[2021-12-26] MEDS: SODIUM CHLORIDE 0.9% 1,000 ML IV SCH ×2 (06:21→11:47)
[2021-12-26 08:27] VITALS: BP 116/75; RESP 12
[2021-12-26] MEDS: FAMOTIDINE 20 MG/2 ML VIAL IV SCH (09:22)
[2021-12-26] MEDS: risperiDONE 1 MG TAB PO SCH (09:23)
[2021-12-26] MEDS: HEPARIN SODIUM,PORCINE/PF 5,000 UNIT/0.5 ML SYRINGE SQ SCH (09:23)
--- NOTE | 2021-12-26 14:00 | P.PN ---
Progress Note - Text Progress Note Date: 12/26/21 Interval History: Patient was seen resting in bed and was directable and agreeable to speak with the show card writer in his room. Currently, the patient continues to deny any need for help. He reports that "there is no point in taking anything because it will not help." He continues to have a decreased appetite and decreased thirst. He did not touch his lunch. He ate a little bit of his breakfast. He initially denies any suicidal or homicidal ideation however when informed that he would like to take medications in order to address his acute psychiatric presentation, the patient states that "I would rather than take any medications." He is otherwise not reporting any auditory or visual hallucinations. He denies any paranoia or other delusions. The patient is currently alert and oriented to person, place, and time. The patient continues to refuse lumbar puncture for any further evaluation and management of syphyllis or other STDs. Mental Status Exam: General Appearance: Patient appears to be stated age is alert, difficult to direct, and intermittently cooperative Behavior: Patient is lying down in bed with poor eye contact. Speech: Patient's speech is nonspontaneous, short and jude in conversation. Mood/Affect: Mood is "not good," affect is congruent and ornery. Suicidality/Homicidality: Patient endorses suicidal ideation and no homicidal ideation. Perceptions: Patient denies any visual hallucinations and denies any auditory hallucinations Though content/process: There is no evidence of any delusional thought content and thought process is linear and goal-directed. Memory and concentration: AOX3, grossly intact for the purposes of this session Judgment and insight: Very poor. Vital Signs Temp 97.2 F L 12/26/21 08:00 Pulse 96 12/26/21 08:00 Resp 12 12/26/21 08:00 BP 116/75 12/26/21 08:00 Pulse Ox 97 12/26/21 08:00 FiO2 Intake & Output 12/25/21 12/26/21 12/26/21 18:59 06:59 18:59 Intake Total 900 Balance 900 Intake: Intake, IV Titration 900 Amount Sodium Chloride 0.9% 1, 900 000 ml @ 130 mls/hr IV . [id number] [facility] Rx#:[id number] Other: Voiding Method Toilet Incontinent # Voids 3 4 Assessment Neurosyphilis Major Neurocognitive disorder with behavioral disturbances Plan: -Agree with medical and neurological evaluation. -At this time patient DOES meet criteria for inpatient psychiatric admission once he is medically and neurologically cleared. The patient's father signed a petition for mental health treatment for this patient as the patient expresses no desire to engage in any mental health services or any neurological evaluation. -Would recommend the following medication changes/additions: At this time, the patient does have a return of his medications. Continue Risperdal 1 mg by mouth twice a day for mood stabilization. Zyprexa when necessary for agitation -Recommend one-to-one sitter for safety. -Cannot leave AMA at this time. Patient will need a petition and certification if attempting to leave AMA. -Psychiatry will sign off at this time and will evaluate and treat the patient once admitted to the psychiatric unit.
[2021-12-26 15:35] VITALS: PULSE 81; TEMP 98.7
--- NOTE | 2021-12-26 18:16 | P.DS ---
Providers Date of admission: 12/22/21 22:47 Attending physician: Jesse Cummings Consults: 12/22/21 22:48 Consult Physician Urgent Consulting Provider: Mariza uRbin Consult Reason/Comments: acute encephalopathy, neurosyphilis Do you want consulting provider notified?: Yes 12/23/21 14:46 Consult Physician Routine Consulting Provider: Ras Hamilton Consult Reason/Comments: Dementia w behavioral disturbance, Confirmed hx of neurosyphilis, treated Do you want consulting provider notified?: Yes 12/24/21 14:39 Consult Physician Routine Consulting Provider: Pooja Rajan Consult Reason/Comments: hx of neurosyphilis with continuation of confusion. Do you want consulting provider notified?: Yes 12/25/21 10:07 Consult to Anesthesia Routine Consulting Provider: Anesthesia,Services Consult Reason/Comments: LP/CSF Primary care physician: Stated None Hospital Course: Diagnoses: Altered mental status/mostly secondary to morbid disorder, bipolar disorder is suspected vs Major Neurocognitive disorder with behavioral disturbances. Patient will be discharged to psych unit neurosyphilis and was treated in May 2021 in [place]. Unknown if it is recurrent. Patient refused workup. Patient instructed to follow up as an outpatient with ID team and neurologist. Dehydration volume depletion refusing to take oral intake. 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 History of smoking was brought to the hospital by his family due to altered mental status. Patient has been agitated and aggressive at times. Also has been refusing to testing family but he was able to tolerate diet while in the hospital. Also patient has been refusing medication, he had some behavioral changes which made him risk for self. Patient has been evaluated by psychiatrist and Major Neurocognitive disorder with behavioral disturbances and recommended transfer to psych unit as inpatient. Patient was petitioned by his father and cert was placed in the chart. Patient also evaluated by infectious disease team and neurologist, MRI of the brain was negative for acute process, EEG showing positive sharp activity on the right frontal region with negative seizure or epileptiform activity. CT of the brain is negative, chest x-ray is negative for acute process. Also patient received IV hydration and he feels better. Lumbar puncture is recommended by consultants, and anesthesia team was consulted but patient refused to sign to consult as he refused needle injection, risks and benefits are explained for him and he verbalized understanding. Because patient refusing further workup patient was cleared for discharge by ID team and neurologist. Patient was instructed to follow up with neurologist Dr. Dee and ID team Dr. Rajan as an outpatient in 7-10 days after discharge and he verbalized understanding. On the day of discharge he is awake and alert, calm, follows commands. Sitter at bedside. He denies chest pain or abdominal pain. No dyspnea. No change in urine or bowel habits. No fever. Problems and management plan were discussed with the patient and he verbalized understanding and acceptance Patient was found stable and can be discharged to psych unit in guarded prognosis however he needs follow-up as an outpatient. Patient was instructed to follow up with PCP within one week and patient agrees Patient was instructed to follow up with a neurologist Dr. Dee and infectious disease Dr. Rajan in 7-10 days after discharge for further evaluation of possible neurosyphilis and he verbalized understanding, patient stated he will make his own appointments. These recommendation also discussed with psychiatry team Dr. stratton Physical exam Gen: patient is a AAOx3, no distress CVS: S1-S2, RRR, no murmur Lungs: B/L CTA, no wheezing Abdomen: soft, no distention, no tenderness, positive bowel sounds Extremity: no leg edema or induration Time spent more than 35 minutes Patient Condition at Discharge: Serious Plan - Discharge Summary New Discharge Prescriptions: No Action No Known Home Medications Discharge Medication List No Known Home Medications 12/22/21 [History] Follow up Appointment(s)/Referral(s): Gibran Dee MD [Medical Doctor] - 1 Week None,Stated [Primary Care Provider] - 1-2 days Pooja Rajan MD [STAFF PHYSICIAN] - 1 Week Discharge/Stand Alone Forms: Who Do I Call?, Adult Foster Alf List, Assisted Living Facilities, Community Resources, Help In The Home, Personal Neurodiagnostic Tech
== END 2021-12-26 21:26 | DRG 641 ==
LOC: EC 15:43 → 4SSUR 22:47
PROVIDERS: ADMIT Hospitalist; ATTEND Hospitalist
PROC: 4A10X4Z Monitoring of Central Nervous Electrical Activity, External Approach (ICD-10-PCS; principal; 2021-12-24)
DX: E86.0 Dehydration (principal); G93.40 Encephalopathy, unspecified; A52.3 Neurosyphilis, unspecified; F02.81 Dementia in other diseases classified elsewhere, unspecified severity, with behavioral disturbance; G31.89 Other specified degenerative diseases of nervous system; E86.9 Volume depletion, unspecified; F31.9 Bipolar disorder, unspecified; F60.0 Paranoid personality disorder; G31.9 Degenerative disease of nervous system, unspecified; R00.0 Tachycardia, unspecified; F41.9 Anxiety disorder, unspecified; Z87.891 Personal history of nicotine dependence; Z20.822 Contact with and (suspected) exposure to COVID-19
CPT/HCPCS: 36415; 70450; 70553; 71045; 80048; 80053; 80306; 81001; 82607; 82746; 84443; 84484; 85025; 85610; 85730; 86592; 86780; 87390; 87635; 93005; 95816; 96372; 96374; 99285

== ENCOUNTER 2021-12-26 20:14 | Inpatient (IN) | payer MEDICAID ==
[2021-12-26] MEDS ORDERED: MAG HYDROX/AL HYDROX/SIMETH 30 ML CUP PO PRN (20:23)
[2021-12-26] MEDS ORDERED: ACETAMINOPHEN TAB 325 MG TAB PO PRN (20:23)
[2021-12-26] MEDS ORDERED: MAGNESIUM HYDROXIDE 2,400 MG/10 ML CUP PO PRN (20:23)
[2021-12-26] MEDS ORDERED: haloperidoL 5 MG TAB PO PRN (20:38)
[2021-12-26] MEDS: LORazepam 2 MG/ML INJ IM PRN (21:46)
[2021-12-27] MEDS: NICOTINE 14MG/24HR PATCH TRANSDERM SCH (09:03)
--- NOTE | 2021-12-27 14:46 | P.HP ---
Psychiatric H&P - . H&P Date: 12/27/21 History & Physical: Allergies Allergy/AdvReac Type Severity Reaction Status Date / Time No Known Allergies Allergy Verified 12/22/21 21:18 Vital Signs Temp 97.4 F L 12/27/21 00:52 Pulse 88 12/27/21 00:52 Resp 20 12/27/21 00:52 BP 124/72 12/27/21 00:52 Pulse Ox FiO2 Intake & Output 12/26/21 12/27/21 12/27/21 18:59 06:59 18:59 Weight 65.771 kg 12/27/21 12:19 IDENTIFYING DATA: Patient is a single, unemployed 46-year-old male with significant history of neurosyphilis presented to the hospital on 12/22/2021, brought into the hospital for altered mental status. HPI: Patient presented to the hospital on 12/22/2021, brought in for altered mental status. The patient was medically admitted for further evaluation of his history of neurosyphilis. The patient was petitioned by his father for mental health treatment as the patient was refusing any medications despite displaying significant decline in behavior including increasing agitation, confusion, and this significantly decreased appetite and thirst. The patient was subsequently admitted to the psychiatric unit on 12/27/2021. Approximately 4 weeks prior to this admission, the patient's father received a call from the patient's friend that they have been unable to properly take care of the patient. The patient was staying in [place] and his father traveled to [place] to bring his son home to [place]. The patient has been diagnosed and worked up for neurosyphilis and dementia at [facility] in [place]. He received 4 weeks of penicillin treatment through a PICC line for management of neurosyphilis. Upon evaluation on the psychiatric unit, the patient continues to endorse significant symptoms of hopelessness, helplessness, somatic delusions, poor hygiene and grooming, and refusal to engage in any treatment. The patient is alert and oriented to person, place, and time. He states that he does not want to take any medications because "he can't." He states that he cannot chew or swallow anything because his teeth are broken. The patient's teeth are intact. The patient also states that he is unable to sleep. Despite his complaints of insomnia, the patient does not want to take any medications to help address this. A second clinical certificate has been filled out. PAST PSYCHIATRIC HISTORY: Patient has no symptoms can psychiatric history prior to his neurosyphilis diagnosed. Patient denies being on any psychiatric medications. Patient denies any previous psychiatric hospitalizations. Patient denies any psychiatric outpatient follow-up. Patient denies any history of suicide attempts in the past. PMH: Additional Past Medical History / Comment(s): Neuro syphillis- that caused dementia. History of Any Multi-Drug Resistant Organisms: None Reported Past Surgical History: No Surgical Hx Reported Past Anesthesia/Blood Transfusion Reactions: No Reported Reaction Past Psychological History: Anxiety, Depression Smoking Status: Former smoker Past Alcohol Use History: Occasional Past Drug Use History: None Reported ALLERGIES: NO KNOWN DRUG ALLERGIES CHEMICAL DEPENDENCY HISTORY: No tobacco, alcohol, marijuana, or illicit drug use. FAMILY PSYCHIATRIC/SUBSTANCE USE HISTORY: No reported family psychiatric history SOCIAL HISTORY: Patient was presented residing in [place] and recently relocated back to [place] approximately 4 weeks prior to this admission. The patient was presented working as a [employer]. He refused to elaborate on any of his sexual history. MENTAL STATUS EXAM: General Appearance: Patient appears to be stated age is alert, directable, and attempts to cooperate. Patient appears to have very poor hygiene and grooming. Notable body odor. Behavior: Patient is lying down in bed. Poor eye contact. Speech: Patient's speech is fluent and nonpressured. Repetitive. Mood/Affect: Patient reports their mood is "I'm okay. Nothing is going to help," affect is dysphoric. Suicidality/Homicidality: Patient denies any suicidal or homicidal ideation. Perceptions: Patient denies any visual hallucinations and denies any auditory hallucinations Though content/process: Patient plays a dysphoric thought process and a learned helplessness. Somatic delusions are endorsed. Memory and concentration: AOX3, grossly intact for the purposes of this session. Can spell "WORLD" backwards Judgment and insight: Very poor. STRENGTHS/WEAKNESSES: Strength is that the patient appears to have a supportive family. Weakness is that the patient has neurosyphilis and has not engaged in psychiatric treatment or further evaluation with any infectious disease doctor since coming back to [place]. INTELLECT: Below average to average IMPRESSIONS: Unspecified mental disorder due to known physiological condition Neurosyphilis PLAN: -Patient is admitted under involuntary status to MHU for stabilization of psychiatric symptoms and safety. A second certification was completed and along with petition will be filed for court. -Medications : Will start patient on Risperdal 1 mg by mouth twice a day for mood stabilization/psychosis. Patient will likely refuse at this time. We will await the court order if necessary. -Ativan and Haldol PRN for agitation/aggression -Patient was informed of the risks, benefits and side effects of the medication however refuses to take any medications at this time. -Internal Medicine consult to perform medical evaluation and physical. -SW on board for discharge planning. Encourage patient to participate in groups to work on coping skills. 12/27/21 12:19
--- NOTE | 2021-12-28 08:18 | P.CONS ---
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 History of smoking was brought to the hospital by his family due to altered mental status. He was admitted to the medical general floor as inpatient From 12/22-12/26 Patient has been agitated and aggressive at times. Also has been refusing to testing family but he was able to tolerate diet while in the hospital. Also patient has been refusing medication, he had some behavioral changes which made him risk for self. Patient has been evaluated by psychiatrist and Major Neurocognitive disorder with behavioral disturbances and recommended transfer to psych unit as inpatient. Patient was petitioned by his father and cert was placed in the chart. Patient also evaluated by infectious disease team and neurologist, MRI of the brain was negative for acute process, EEG showing positive sharp activity on the right frontal region with negative seizure or epileptiform activity. CT of the brain is negative, chest x-ray is negative for acute process. Also patient received IV hydration and he feels better. Lumbar puncture is recommended by consultants, and anesthesia team was consulted but patient refused to sign to consult as he refused needle injection, risks and benefits are explained for him and he verbalized understanding. Because patient refusing further workup patient was cleared for discharge by ID team and neurologist. Patient was instructed to follow up with neurologist Dr. Dee and ID team Dr. Rajan as an outpatient in 7-10 days after discharge and he verbalized understanding. On the day of discharge he is awake and alert, calm, follows commands. He was eating and drinking the medical floor while sitter was at bedside. However today patient is lying in bed, closing his eyes, refusing to talk to me or follow my commands or answer my questions. Vitals are stable. Labs reviewed Review of Systems Review of systems: n/a , patient refusing to answer my question Past Medical History Additional Past Medical History / Comment(s): Neuro syphillis- that caused dementia. History of Any Multi-Drug Resistant Organisms: None Reported Past Surgical History: No Surgical Hx Reported Past Anesthesia/Blood Transfusion Reactions: No Reported Reaction Past Psychological History: Anxiety, Depression Smoking Status: Former smoker Past Alcohol Use History: Occasional Past Drug Use History: None Reported Medications and Allergies Home Medications Medication Instructions Recorded Confirmed Type No Known Home Medications 12/22/21 12/26/21 History Allergies Allergy/AdvReac Type Severity Reaction Status Date / Time No Known Allergies Allergy Verified 12/22/21 21:18 Physical Exam Vitals: Vital Signs Temp Pulse Resp BP 12/27/21 00:52 97.4 F L 88 20 124/72 Intake and Output 12/26/21 12/27/21 12/27/21 22:59 06:59 14:59 Other: Weight 65.771 kg -GENERAL: The patient is awake, closing his eyes, his refusing to follow commands or answer my questions, exam is limited by patient condition and refusal to cooperate HEENT: Pupils are round and equally reacting to light. EOMI. No scleral icterus. No conjunctival pallor. Normocephalic, atraumatic. No pharyngeal erythema. No thyromegaly. CARDIOVASCULAR: S1 and S2 present. No murmurs, rubs, or gallops. PULMONARY: Chest is clear to auscultation, no wheezing or crackles. ABDOMEN: Soft, nontender, nondistended, normoactive bowel sounds. No palpable organomegaly. MUSCULOSKELETAL: No joint swelling or deformity. EXTREMITIES: No cyanosis, clubbing, or pedal edema. NEUROLOGICAL: Gross neurological examination did not reveal any focal deficits. Cranial nerves are grossly intact. Strength 5/5. Meningeal signs are absent SKIN: No rashes. no petechiae. Assessment and Plan Assessment: -Altered mental status/mostly secondary to morbid disorder, bipolar disorder is suspected vs Major Neurocognitive disorder with behavioral disturbances. Patient will be discharged to psych unit -Patient's refusal to eat and drink and take care of himself, due to psych illness, continue with psychiatrist management per primary team -neurosyphilis and was treated in May 2021 in [place]. Unknown if it is recurrent. Patient refused workup. Patient instructed to follow up as an outpatient with ID team and neurologist. -Dehydration volume depletion refusing to take oral intake. Improved We recommend patient follow up with infectious disease Dr. Rajan in 1 week after discharge, also we recommend to follow up with neurologist in 1 to take after discharge, patient was instructed with the same Follow-up recommendation was placed in the discharge instructions for Dr. Rajan and Dr. Dee Thank you for consulting us, we will follow up with the patient on as needed basis. Please feel free to contact us for any further question or clarification
[2021-12-28] MEDS: NICOTINE 14MG/24HR PATCH TRANSDERM SCH (09:26)
--- NOTE | 2021-12-28 13:12 | P.PN ---
Progress Note - Text Progress Note Date: 12/28/21 Interval History: Patient was seen resting in bed and was directable and refused to speak with this provider despite multiple attempts. The patient only states that he wishes to be left alone. As per staff, the patient continues to not engage in any activities. He remains isolative to himself in his room. He continues to have very poor hygiene and grooming and has significant halitosis. Furthermore, the patient has had decreased appetite and thirst. We are awaiting court order. Mental Status Exam: General Appearance: Patient appears to be stated age is alert, however not directable or cooperative.. Behavior: Patient is lying down in bed with poor eye contact. Speech: Patient's speech is minimal. Mood/Affect: Mood cannot be assessed. Affect is obstinate and dysphoric. Suicidality/Homicidality: Cannot be assessed Perceptions: Cannot be assessed Though content/process: Cannot be assessed Memory and concentration: Cannot be assessed today Judgment and insight: Very poor Vital Signs Temp 97.4 F L 12/27/21 00:52 Pulse 88 12/27/21 00:52 Resp 20 12/27/21 00:52 BP 124/72 12/27/21 00:52 Pulse Ox FiO2 Assessment Unspecified mental disorder due to known physiological condition Neurosyphilis Plan: -Patient continues to meet criteria for inpatient psychiatric admission for symptom stabilization and safety. The patient has been petitioned and certified. -Medications: We will start Zyprexa Zydis 5 mg by sublingual 3 times a day for mood and psychosis -When necessary Ativan and Haldol for agitation/aggression. -SW on board for discharge planning. Encouraged the patient to participate in milieu.
[2021-12-28] MEDS: OLANZapine ODT 5 MG TAB PO SCH ×2 (16:03→23:54)
[2021-12-29] MEDS: NICOTINE 14MG/24HR PATCH TRANSDERM SCH (09:00)
[2021-12-29] MEDS: OLANZapine ODT 5 MG TAB PO SCH ×3 (09:00→22:26)
[2021-12-29] MEDS: HALOPERIDOL LACTATE 5 MG/ML 1 ML VIAL IM PRN (14:59)
--- NOTE | 2021-12-29 17:39 | P.PN ---
Progress Note - Text Progress Note Date: 12/29/21 Interval history: Patient was seen in his room with the nurse present due to his refusal to engage in treatment and recent agitation. He is disheveled, malodorous. His papers thrown around his room. Patient is laying in bed facing away from this financial underwriter. He does not turn to engage in assessment on multiple attempts to engage with patient. Nursing staff reports patient has been noncompliant with treatment. He has been noncompliant with medications and was severely agitated this afternoon, required Haldol 5 mg IM 1. He is disheveled, malodorous, refuses to talk, sitting report he has been refusing meals and vitals. He has been verbally aggressive with staff, has been swearing at nurses, especially for waking him up. Mental status exam: General Appearance: Patient disheveled, malodorous. Behavior: Patient does not engage in assessment, remains laying in bed in facing away from this financial underwriter. Speech: Unable to assess due to lack of cooperation Mood/Affect: Unable to assess due to lack of cooperation Suicidality/Homicidality: Unable to assess due to lack of cooperation Perceptions: Unable to assess due to lack of cooperation Though content/process: Unable to assess due to lack of cooperation Memory and concentration: Unable to assess due to lack of cooperation Judgment and insight: Very poor Assessment/Plan: Continue with current diagnosis. Discussed with nurse. Medical doctor to follow-up due to concern for poor oral intake. Patient continues to meet criteria for inpatient psychiatric admission for symptom stabilization and safety. Patient will be maintained on current psychotropic medication regimen. Monitor for medication compliance and for any psychotropic medication side effects. Will continue to monitor ongoing response to treatment. Encouraged participation in milieu.
[2021-12-30] MEDS: OLANZapine ODT 5 MG TAB PO SCH ×3 (09:05→22:01)
[2021-12-30] MEDS: NICOTINE 14MG/24HR PATCH TRANSDERM SCH (09:05)
--- NOTE | 2021-12-30 18:48 | P.PN ---
Progress Note - Text Progress Note Date: 12/30/21 Interval history: Patient was seen in his room with the nurse present due to his refusal to engage in treatment and recent agitation. He remains disheveled and malodorous, with papers thrown around his room. He recently became upset at staff who was bringing him his water and he threw his water at her; there is water on the floor of his room. He does refuses to engage when we call his name. He is laying in bebd with covers over his face, moves a bit, but refuses to uncover his face or respond. He remainsn noncompliant with medications and treatment. Mental status exam: General Appearance: Patient disheveled, malodorous. Behavior: Patient does not engage in assessment, remains laying in bed with faced covered with sheets. Speech: Unable to assess due to lack of cooperation Mood/Affect: Unable to assess due to lack of cooperation Suicidality/Homicidality: Unable to assess due to lack of cooperation Perceptions: Unable to assess due to lack of cooperation Though content/process: Unable to assess due to lack of cooperation Memory and concentration: Unable to assess due to lack of cooperation Judgment and insight: Very poor Assessment/Plan: Continue with current diagnosis. Discussed with nurse. Medical doctor to follow-up due to concern for poor oral i ntake. Patient continues to meet criteria for inpatient psychiatric admission for symptom stabilization and safety. Patient will be maintained on current psychotropic medication regimen. Monitor for medication compliance and for any psychotropic medication side effects. Will continue to monitor ongoing response to treatment. Encouraged participation in milieu.
[2021-12-31] MEDS: LORazepam 2 MG/ML INJ IM PRN ×2 (01:18→18:29)
[2021-12-31] MEDS: HALOPERIDOL LACTATE 5 MG/ML 1 ML VIAL IM PRN ×2 (01:18→18:29)
[2021-12-31] MEDS: NICOTINE 14MG/24HR PATCH TRANSDERM SCH (09:32)
[2021-12-31] MEDS: OLANZapine ODT 5 MG TAB PO SCH ×3 (09:32→22:26)
--- NOTE | 2021-12-31 11:15 | P.PN ---
Progress Note - Text Progress Note Date: 12/31/21 Interval History: Patient was seen resting in bed and was directable and refused to speak with this provider despite multiple attempts. The patient's room has been in disarray. It is filled with torn up papers. The patient was noted to be agitated and threatening last night and Haldol and Ativan are administered at approximately 1:18 AM. He refuses to participate in the psychiatric interview today. The patient has been noted by staff to eat and drink very minimally. Concern for malnutrition. Mental Status Exam: General Appearance: Patient appears to be stated age is malodorous, disheveled, and uncooperative. Behavior: Patient is lying down in bed with poor eye contact. He covers himself of his bed sheets. He does move minimally. Speech: Patient's speech is minimal. Mood/Affect: Mood cannot be assessed. Affect appears to be obstinate Suicidality/Homicidality: Cannot be assessed Perceptions: Cannot be assessed Though content/process: Cannot be assessed Memory and concentration: Cannot be assessed Judgment and insight: Very poor Vital Signs Temp 97.4 F L 12/27/21 00:52 Pulse 88 12/27/21 00:52 Resp 20 12/27/21 00:52 BP 124/72 12/27/21 00:52 Pulse Ox FiO2 Assessment Unspecified mental disorder due to known physiological condition Neurosyphilis Plan: -Patient continues to meet criteria for inpatient psychiatric admission for symptom stabilization and safety. The patient has been petitioned and certified. Court scheduled for 01/09/2022. We will attempt to contact the court to try to reschedule to an earlier date. -Medications: Continue Zyprexa Zydis 5 mg by sublingual 3 times a day for mood and psychosis. Patient continues to refuse this medication. -When necessary Ativan and Haldol for agitation/aggression. -SW on board for discharge planning. Encouraged the patient to participate in milieu.
[2022-01-01] MEDS: OLANZapine ODT 5 MG TAB PO SCH ×2 (09:02→16:04)
[2022-01-01] MEDS: NICOTINE 14MG/24HR PATCH TRANSDERM SCH (09:02)
--- NOTE | 2022-01-01 11:55 | P.PN ---
Progress Note - Text Progress Note Date: 01/01/22 Interval History: Patient was seen resting in bed and was directable and refused to speak with this provider despite multiple attempts. Patient's room continues to be in disarray and the patient continues to have poor hygiene and grooming including poor smell. The patient is now on finger foods however continues to not eat his meals. Furthermore, the patient continues to have occasional outbursts of anger. He is scheduled for court on 01/09/2022. We're attempting to reschedule this as early as possible. Mental Status Exam: General Appearance: Patient appears to be stated age is malodorous, disheveled, and uncooperative. Behavior: Patient is lying down in bed with poor eye contact. He covers himself of his bed sheets. He does move minimally. Speech: Patient's speech is minimal. Mood/Affect: Mood cannot be assessed. Affect appears to be obstinate Suicidality/Homicidality: Cannot be assessed Perceptions: Cannot be assessed Though content/process: Cannot be assessed Memory and concentration: Cannot be assessed Judgment and insight: Very poor Vital Signs Temp 97.4 F L 12/27/21 00:52 Pulse 88 12/27/21 00:52 Resp 20 12/27/21 00:52 BP 124/72 12/27/21 00:52 Pulse Ox FiO2 Assessment Unspecified mental disorder due to known physiological condition Neurosyphilis Plan: -Monitor I & Os -Patient continues to meet criteria for inpatient psychiatric admission for symptom stabilization and safety. The patient has been petitioned and certified. Court scheduled for 01/09/2022. We will attempt to contact the court to try to reschedule to an earlier date. -Medications: Continue Zyprexa Zydis 5 mg by sublingual 3 times a day for mood and psychosis. Patient continues to refuse this medication. -When necessary Ativan and Haldol for agitation/aggression. -SW on board for discharge planning. Encouraged the patient to participate in milieu.
[2022-01-02] MEDS: OLANZapine ODT 5 MG TAB PO SCH ×4 (00:32→21:00)
[2022-01-02] MEDS: NICOTINE 14MG/24HR PATCH TRANSDERM SCH (09:11)
--- NOTE | 2022-01-02 10:23 | P.PN ---
Progress Note - Text Progress Note Date: 01/02/22 Interval History: Patient was seen resting in bed and was directable and refused to speak with this provider despite multiple attempts. The patient does appear to be catatonic. The patient is a fluttering. He refuses to answer any questions and exhibits minimal movement. He has not been eating. The patient is scheduled for court on 01/09/2022 however we have been able to reschedule the court date for tomorrow. Mental Status Exam: General Appearance: Patient appears to be stated age is malodorous, disheveled, and uncooperative. Behavior: Patient is lying down in bed with poor eye contact. The patient exhibits some rigidity and eye fluttering. The patient displays significant signs and symptoms of catatonia including significant symptoms of negativism, stupor, mutism. Speech: Patient is mute. Mood/Affect: Mood cannot be assessed. 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 The patient has been petitioned and certified. Court scheduled for 01/09/2022. Court is reportedly rescheduled to tomorrow. -Medications: Continue Zyprexa Zydis 5 mg by sublingual 3 times a day for mood and psychosis. Patient continues to refuse this medication. -When necessary Ativan and Haldol for agitation/aggression. -SW on board for discharge planning. Encouraged the patient to participate in milieu.
[2022-01-03] MEDS: NICOTINE 14MG/24HR PATCH TRANSDERM SCH (08:39)
[2022-01-03] MEDS: OLANZapine ODT 5 MG TAB PO SCH ×3 (08:39→20:45)
--- NOTE | 2022-01-03 11:35 | P.PN ---
Progress Note - Text Progress Note Date: 01/03/22 Interval History: Patient was seen resting in bed and was directable and refused to speak with this provider despite multiple attempts. This provider was able to speak with him briefly yesterday afternoon. At that time, the patient continues to endorse delusional belief that his teeth are broken that he would be unable to eat or swallow. He has been noted by staff to drink some water. He has been requesting a razor so that he may shave however was encouraged to allow blood work to be drawn and to work on his hygiene which she has refused. He is scheduled for court today. The patient refuses to engage in the psychiatric interview this morning. Despite multiple times for this provider to arouse him away, the patient refuses to get up. Mental Status Exam: General Appearance: Patient appears to be stated age is malodorous, disheveled, and uncooperative. Behavior: Patient is lying down in bed with poor eye contact. Speech: Patient is selectively mute. Mood/Affect: Mood cannot be assessed. 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 The patient has been petitioned and certified. Patient is scheduled for court today. -Medications: Continue Zyprexa Zydis 5 mg by sublingual 3 times a day for mood and psychosis. Patient continues to refuse this medication. Once the patient is court ordered, we will begin to administer Zyprexa IM patients. -When necessary Ativan and Haldol for agitation/aggression. -SW on board for discharge planning. Encouraged the patient to participate in milieu.
[2022-01-04] MEDS: NICOTINE 14MG/24HR PATCH TRANSDERM SCH (07:51)
[2022-01-04] MEDS: OLANZapine ODT 5 MG TAB PO SCH ×3 (07:51→21:07)
--- NOTE | 2022-01-04 11:33 | P.PN ---
Progress Note - Text Progress Note Date: 01/04/22 Interval History: Patient was seen resting in bed and was agreeable to speak with typewriter ribbon winder in his room. Currently, the patient just repeats himself constantly. He states that he cannot take medications because he is unable to swallow however refuses to try to swallow. Furthermore, the patient was informed that once we receive the court order, we will administer medications through injection. The patient then states that he does not want any injections due to the pain. He was then informed that if he does not receive the injection, he would have to take medications orally to which he again cycled back to saying he cannot take any medications. He refuses to answer any other psychiatric questions. We are awaiting court order paperwork. Mental Status Exam: General Appearance: Patient appears to be stated age is malodorous, disheveled, and uncooperative. Behavior: Patient is lying down in bed with fair eye contact Speech: Patient speech is repetitive, low in volume, and monotone. Mood/Affect: Mood cannot be assessed. Affect appears to be dysphoric. Suicidality/Homicidality: Cannot be assessed Perceptions: Cannot be assessed Though content/process: Cannot be assessed Memory and concentration: Cannot be assessed Judgment and insight: Very poor Vital Signs Temp 97.4 F L 12/27/21 00:52 Pulse 88 12/27/21 00:52 Resp 20 12/27/21 00:52 BP 124/72 12/27/21 00:52 Pulse Ox FiO2 Assessment Unspecified mental disorder due to known physiological condition Neurosyphilis Plan: -Monitor I & Os -Patient continues to meet criteria for inpatient psychiatric admission for symptom stabilization and safety. The patient has been petitioned and certified. Patient is scheduled for court today. -Medications: Zyprexa Zydis 5 mg by mouth 3 times a day. Should the patient refuse medications and once we receive court order paperwork, we will administer Zyprexa 5 mg IM if he refuses oral medication. Remeron 15 mg by mouth at bedtime for depression/appetite stimulation -Will order CBC, CMP, and a multivitamin -When necessary Ativan and Haldol for agitation/aggression. -SW on board for discharge planning. Encouraged the patient to participate in milieu.
[2022-01-04] MEDS: ASCORBIC ACID 500 MG TAB PO SCH (15:21)
[2022-01-04] MEDS ORDERED: WATER FOR INJECTION, STERILE 10 ML IV ONE (15:26)
[2022-01-04] MEDS: OLANZapine 10 MG VIAL IM PRN (15:26)
[2022-01-04 15:35] LABS: Albumin 5.2 g/dL (3.5-5.0); Calcium 10.5 mg/dL (8.4-10.2); Potassium 5.6 mmol/L (3.5-5.1); Total Bilirubin 1.1 mg/dL (0.2-1.3); Total Protein 7.8 g/dL (6.3-8.2)
[2022-01-04 15:40] LABS: Basophils # (A) 0.1 k/uL (0-0.2); Basophils % (A) 1 %; Eosinophils # (A) 0.1 k/uL (0-0.7); Eosinophils % (A) 1 %; HCT 53.1 % (39.0-53.0); HGB 17.3 gm/dL (13.0-17.5); Lymphocytes # (A) 3.6 k/uL (1.0-4.8); Lymphocytes % (A) 32 %; MCH 31.3 pg (25.0-35.0); MCHC 32.5 g/dL (31.0-37.0); Mean Platelet Volume 7.5; Monocytes # (A) 0.4 k/uL (0-1.0); Monocytes % (A) 3 %; Neutrophils # (A) 6.7 k/uL (1.3-7.7); Neutrophils % (A) 61 %; Platelet Count 230 k/uL (150-450); RBC 5.53 m/uL (4.30-5.90); RDW 13.3 % (11.5-15.5); WBC 10.9 k/uL (3.8-10.6)
[2022-01-04] MEDS ORDERED: SODIUM POLYSTYRENE SULFONATE 15 GM/60 ML BOTTLE PO STA (16:23)
[2022-01-04] MEDS: MIRTAZAPINE 15 MG TAB PO SCH (21:07)
[2022-01-05 09:03] LABS: Basophils # (A) 0.1 k/uL (0-0.2); Basophils % (A) 1 %; Eosinophils # (A) 0.2 k/uL (0-0.7); Eosinophils % (A) 2 %; HCT 50.2 % (39.0-53.0); HGB 16.9 gm/dL (13.0-17.5); Lymphocytes # (A) 3.5 k/uL (1.0-4.8); Lymphocytes % (A) 31 %; MCH 32.6 pg (25.0-35.0); MCHC 33.6 g/dL (31.0-37.0); MCV 96.8 fL (80.0-100.0); Mean Platelet Volume 8.1; Monocytes # (A) 0.7 k/uL (0-1.0); Monocytes % (A) 6 %; Neutrophils # (A) 6.6 k/uL (1.3-7.7); Neutrophils % (A) 59 %; Platelet Count 198 k/uL (150-450); RBC 5.18 m/uL (4.30-5.90); RDW 13.5 % (11.5-15.5); WBC 11.3 k/uL (3.8-10.6)
[2022-01-05] MEDS: MULTIVITAMINS, THERA 1 EACH TAB PO SCH ×2 (09:55→11:47)
[2022-01-05] MEDS: ASCORBIC ACID 500 MG TAB PO SCH ×2 (09:55→11:47)
[2022-01-05] MEDS: NICOTINE 14MG/24HR PATCH TRANSDERM SCH (09:55)
[2022-01-05] MEDS: OLANZapine ODT 5 MG TAB PO SCH ×4 (09:55→20:08)
[2022-01-05] MEDS: LORazepam 2 MG/ML INJ IM PRN (09:56)
[2022-01-05] MEDS: HALOPERIDOL LACTATE 5 MG/ML 1 ML VIAL IM PRN (09:56)
[2022-01-05 12:21] LABS: African American GFR (CKD) >90 (>60 ml/min/1.73 sqM); Anion Gap 8 mmol/L; Blood Urea Nitrogen 22 mg/dL (9-20); Calcium 9.5 mg/dL (8.4-10.2); Carbon Dioxide 31 mmol/L (22-30); Chloride 99 mmol/L (98-107); Glucose 97 mg/dL (74-99); Non-African American GFR(CKD) 82 (>60 ml/min/1.73 sqM); Potassium 3.8 mmol/L (3.5-5.1); Sodium 138 mmol/L (137-145)
--- NOTE | 2022-01-05 14:18 | P.PN ---
Progress Note - Text Progress Note Date: 01/05/22 Interval History: Patient was seen resting in bed, he was deep asleep and snoring. He would not awaken when calling his name multiple times so he was left undisturbed to sleep. Respirations normal. He remains malodorous, has not showered since admission. He has been refusing medications and treatment since admission. He received Zyprexa 5 mg IM yesterday afternoon due severe agitation and noncompliance with blood draw (he is on a court order) with improvement, and later that evening he took his Remeron and scheduled Zyprexa, which is an improvement for him. Earlier today, he received Haldol 5 mg IM and Ativan 2 mg IM x 1 due to severe agitation and need to repeat blood work from yesterday (it had hemolyzed). Staff reports improvement in his mood and behavior since getting the Haldol/Ativan this morning, and noted that he came out of his room and to the nurse's desk to ask a question, which is also an improvement for him. Labs reviewed and showed elevated WBC. Mental Status Exam: General Appearance: Patient appears to be stated age is malodorous, disheveled, and sleeping Behavior: Patient is lying down in bed, asleep and snoring. Speech: Not able to assess Mood/Affect: Not able to assess Suicidality/Homicidality: Cannot be assessed Perceptions: Cannot be assessed Though content/process: Cannot be assessed Memory and concentration: Cannot be assessed Judgment and insight: Very poor Vital Signs 12/27/21 00:52 Temperature 97.4 F L Pulse Rate [ 88 Right] Respiratory 20 Rate Blood Pressure 124/72 [Right Arm] Laboratory Results WBC 11.3 k/uL (3.8-10.6) H 01/05/22 07:55 RBC 5.18 m/uL (4.30-5.90) 01/05/22 07:55 Hgb 16.9 gm/dL (13.0-17.5) 01/05/22 07:55 Hct 50.2 % (39.0-53.0) 01/05/22 07:55 MCV 96.8 fL (80.0-100.0) 01/05/22 07:55 MCH 32.6 pg (25.0-35.0) 01/05/22 07:55 MCHC 33.6 g/dL (31.0-37.0) 01/05/22 07:55 RDW 13.5 % (11.5-15.5) 01/05/22 07:55 Plt Count 198 k/uL (150-450) 01/05/22 07:55 MPV 8.1 01/05/22 07:55 Neutrophils % 59 % 01/05/22 07:55 Lymphocytes % 31 % 01/05/22 07:55 Monocytes % 6 % 01/05/22 07:55 Eosinophils % 2 % 01/05/22 07:55 Basophils % 1 % 01/05/22 07:55 Neutrophils # 6.6 k/uL (1.3-7.7) 01/05/22 07:55 Lymphocytes # 3.5 k/uL (1.0-4.8) 01/05/22 07:55 Monocytes # 0.7 k/uL (0-1.0) 01/05/22 07:55 Eosinophils # 0.2 k/uL (0-0.7) 01/05/22 07:55 Basophils # 0.1 k/uL (0-0.2) 01/05/22 07:55 Sodium 138 mmol/L (137-145) 01/05/22 11:25 Potassium 3.8 mmol/L (3.5-5.1) 01/05/22 11:25 Chloride 99 mmol/L (98-107) 01/05/22 11:25 Carbon Dioxide 31 mmol/L (22-30) H 01/05/22 11:25 Anion Gap 8 mmol/L 01/05/22 11:25 BUN 22 mg/dL (9-20) H 01/05/22 11:25 Creatinine 1.07 mg/dL (0.66-1.25) 01/05/22 11:25 Est GFR (CKD-EPI)AfAm >90 (>60 ml/min/1.73 sqM) 01/05/22 11:25 Est GFR (CKD-EPI)NonAf 82 (>60 ml/min/1.73 sqM) 01/05/22 11:25 Glucose 97 mg/dL (74-99) 01/05/22 11:25 Calcium 9.5 mg/dL (8.4-10.2) 01/05/22 11:25 Total Bilirubin 1.1 mg/dL (0.2-1.3) 01/04/22 15:01 AST 35 U/L (17-59) 01/04/22 15:01 ALT 23 U/L (4-49) 01/04/22 15:01 Alkaline Phosphatase 61 U/L (38-126) 01/04/22 15:01 Total Protein 7.8 g/dL (6.3-8.2) 01/04/22 15:01 Albumin 5.2 g/dL (3.5-5.0) H 01/04/22 15:01 Assessment Unspecified mental disorder due to known physiological condition Neurosyphilis Plan: -Monitor I & Os -Patient continues to meet criteria for inpatient psychiatric admission for symptom stabilization and safety. The patient has been petitioned and certified. Patient is scheduled has been placed on court order and we are awaiting paperwork. -Medications: Continue Zyprexa Zydis 5 mg by mouth 3 times a day. Should the patient refuse medications and once we receive court order paperwork, we will administer Zyprexa 5 mg IM if he refuses oral medication. Continue Remeron 15 mg by mouth at bedtime for depression/appetite stimulation -Medical doctor to follow-up on labs: elevated WBC. -When necessary Ativan and Haldol for agitation/aggression. -SW on board for discharge planning. Encouraged the patient to participate in milieu.
[2022-01-05] MEDS: MIRTAZAPINE 15 MG TAB PO SCH (20:08)
[2022-01-06] MEDS: MULTIVITAMINS, THERA 1 EACH TAB PO SCH (07:57)
[2022-01-06] MEDS: ASCORBIC ACID 500 MG TAB PO SCH (07:57)
[2022-01-06] MEDS: LORazepam 1 MG TAB PO PRN ×2 (08:21→20:20)
[2022-01-06] MEDS: OLANZapine ODT 5 MG TAB PO SCH ×3 (08:21→20:17)
[2022-01-06] MEDS: NICOTINE 14MG/24HR PATCH TRANSDERM SCH (08:22)
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
[2022-01-06] MEDS: MIRTAZAPINE 15 MG TAB PO SCH (20:17)
[2022-01-07] MEDS: OLANZapine ODT 5 MG TAB PO SCH ×3 (08:52→20:20)
[2022-01-07] MEDS: ASCORBIC ACID 500 MG TAB PO SCH (08:52)
[2022-01-07] MEDS: NICOTINE 14MG/24HR PATCH TRANSDERM SCH (08:52)
[2022-01-07] MEDS: MULTIVITAMINS, THERA 1 EACH TAB PO SCH (08:52)
[2022-01-07 09:01] VITALS: RESP 18; TEMP 97
--- NOTE | 2022-01-07 14:16 | P.PN ---
Progress Note - Text Progress Note Date: 01/07/22 Interval History: Patient was seen in his room where he was found sitting up in bed eating his lunch. He reports great mood, fair sleep, and good appetite. He is alert and oriented to person, place, and time. He is more cooperative and pleasant today than previous assessments but no irritability observed today. Hygiene is improved, no longer malodorous, and asks if he can trim his canseco today. He has been compliant with his Zyprexa and Remeron over the past couple days with significant improvement in his mood and behavior. He denies medication side effects. He denies SI/HI, intent or plan. He denies auditory or visual hallucinations. Mental Status Exam: General Appearance: Patient appears to be stated age. Hygiene is improved, is not malodorous today. Behavior: Patient is sitting up in bed eating his lunch. He is calm, attempts to cooperate and is pleasant. Speech: Fluent and nonpressured. Mood/Affect: Mood is "great", affect is congruent and broad. Suicidality/Homicidality: He denies suicidal and homicidal ideations, plan or intent. Perceptions: He denies auditory or visual hallucinations. Though content/process: Thought process is linear, thought content is appropriate to context. Memory and concentration: He is alert and oriented to person, place and time. Judgment and insight: Mildly improving. Vital Signs - 24 hr 01/06/22 17:09 Temperature 97.1 F L Pulse Rate [ 130 H Right] Respiratory 16 Rate Blood Pressure 111/55 [Right Arm] Laboratory Results WBC 11.3 k/uL (3.8-10.6) H 01/05/22 07:55 RBC 5.18 m/uL (4.30-5.90) 01/05/22 07:55 Hgb 16.9 gm/dL (13.0-17.5) 01/05/22 07:55 Hct 50.2 % (39.0-53.0) 01/05/22 07:55 MCV 96.8 fL (80.0-100.0) 01/05/22 07:55 MCH 32.6 pg (25.0-35.0) 01/05/22 07:55 MCHC 33.6 g/dL (31.0-37.0) 01/05/22 07:55 RDW 13.5 % (11.5-15.5) 01/05/22 07:55 Plt Count 198 k/uL (150-450) 01/05/22 07:55 MPV 8.1 01/05/22 07:55 Neutrophils % 59 % 01/05/22 07:55 Lymphocytes % 31 % 01/05/22 07:55 Monocytes % 6 % 01/05/22 07:55 Eosinophils % 2 % 01/05/22 07:55 Basophils % 1 % 01/05/22 07:55 Neutrophils # 6.6 k/uL (1.3-7.7) 01/05/22 07:55 Lymphocytes # 3.5 k/uL (1.0-4.8) 01/05/22 07:55 Monocytes # 0.7 k/uL (0-1.0) 01/05/22 07:55 Eosinophils # 0.2 k/uL (0-0.7) 01/05/22 07:55 Basophils # 0.1 k/uL (0-0.2) 01/05/22 07:55 Sodium 138 mmol/L (137-145) 01/05/22 11:25 Potassium 3.8 mmol/L (3.5-5.1) 01/05/22 11:25 Chloride 99 mmol/L (98-107) 01/05/22 11:25 Carbon Dioxide 31 mmol/L (22-30) H 01/05/22 11:25 Anion Gap 8 mmol/L 01/05/22 11:25 BUN 22 mg/dL (9-20) H 01/05/22 11:25 Creatinine 1.07 mg/dL (0.66-1.25) 01/05/22 11:25 Est GFR (CKD-EPI)AfAm >90 (>60 ml/min/1.73 sqM) 01/05/22 11:25 Est GFR (CKD-EPI)NonAf 82 (>60 ml/min/1.73 sqM) 01/05/22 11:25 Glucose 97 mg/dL (74-99) 01/05/22 11:25 Calcium 9.5 mg/dL (8.4-10.2) 01/05/22 11:25 Total Bilirubin 1.1 mg/dL (0.2-1.3) 01/04/22 15:01 AST 35 U/L (17-59) 01/04/22 15:01 ALT 23 U/L (4-49) 01/04/22 15:01 Alkaline Phosphatase 61 U/L (38-126) 01/04/22 15:01 Total Protein 7.8 g/dL (6.3-8.2) 01/04/22 15:01 Albumin 5.2 g/dL (3.5-5.0) H 01/04/22 15:01 Assessment Unspecified mental disorder due to known physiological condition Rule out bipolar disorder Neurosyphilis Plan: -Monitor I & Os -Patient continues to meet criteria for inpatient psychiatric admission for symptom stabilization and safety. The patient has been petitioned and certified. Patient is placed on court order. -Medications: Continue Zyprexa Zydis 5 mg by mouth 3 times a day. Should the patient refuse medications and once we receive court order paperwork, we will administer Zyprexa 5 mg IM if he refuses oral medication. Continue Remeron 15 mg by mouth at bedtime for depression/appetite stimulation. -When necessary Ativan and Haldol for agitation/aggression. -SW on board for discharge planning. Encouraged the patient to participate in milieu.
[2022-01-07 14:23] VITALS: BMI 20.2
[2022-01-07] MEDS: MIRTAZAPINE 15 MG TAB PO SCH (20:20)
[2022-01-07] MEDS: LORazepam 1 MG TAB PO PRN (20:21)
[2022-01-08] MEDS: NICOTINE 14MG/24HR PATCH TRANSDERM SCH (08:55)
[2022-01-08] MEDS: OLANZapine ODT 5 MG TAB PO SCH (08:55)
[2022-01-08] MEDS: MULTIVITAMINS, THERA 1 EACH TAB PO SCH (08:58)
[2022-01-08] MEDS: ASCORBIC ACID 500 MG TAB PO SCH (08:58)
--- NOTE | 2022-01-08 14:07 | P.PN ---
Progress Note - Text Progress Note Date: 01/08/22 Interval History: Patient was seen resting in bed and was agreeable to speak with production underwriter in his room. The patient has been eating more and displays poor cooperation in the psychiatric assessment. Currently, the patient reports no significant issues or concerns at this time. He states that he is happy to have eaten. He is currently denying any suicidal or homicidal ideation, intention, and/or plan. He denies any auditory or visual hallucinations. He reports no paranoia but continues to endorse delusional belief that he is unable to take care of his teeth because "my teeth are now broken." The patient has been adherent with his psychiatric medications but has been refusing some of his multivitamins. He was encouraged to take his medications and vitamins. He has displayed an improvement in hygiene and grooming. Mental Status Exam: General Appearance: Patient appears to be stated age, with improved hygiene and grooming. Behavior: Patient is lying down in bed with fair eye contact Speech: Patient speech is spontaneous, with normal rate, tone, and volume. Mood/Affect: Mood is "feeling better." Affect appears to be bright and friendly today. Suicidality/Homicidality: Patient denies any suicidal or homicidal ideation. Perceptions: Patient does not report any auditory or visual hallucinations. Though content/process: Some somatic delusional thought content is endorsed however the patient is much more linear and logical and goal oriented today. Memory and concentration: Alert and oriented to person and place. He mistakes a month for February. Judgment and insight: Improving Vital Signs Temp 97.0 F L 01/07/22 08:59 Pulse 103 H 01/07/22 08:59 Resp 18 01/07/22 08:59 BP 111/55 01/06/22 17:09 Pulse Ox 100 01/07/22 08:59 FiO2 Intake & Output 01/07/22 01/08/22 01/08/22 18:59 06:59 18:59 Weight 65.771 kg Assessment Unspecified mental disorder due to known physiological condition Neurosyphilis Plan: -Monitor I & Os -Patient continues to meet criteria for inpatient psychiatric admission for symptom stabilization and safety. The patient is now court ordered for medications. -Medications: We will increase Zyprexa Zydis to 10 mg ODT twice daily Increase Remeron to 30 mg by mouth at bedtime for depression/appetite stimulation -Labs reviewed. Improving. -Encourage this patient to speak with his father to display further improvement. -When necessary Ativan and Haldol for agitation/aggression. -SW on board for discharge planning. Encouraged the patient to participate in milieu.
[2022-01-08] MEDS: MIRTAZAPINE 15 MG TAB PO SCH (21:07)
[2022-01-08] MEDS: OLANZapine ODT 10 MG TAB PO SCH (21:07)
[2022-01-09] MEDS: ASCORBIC ACID 500 MG TAB PO SCH ×2 (10:00→10:06)
[2022-01-09] MEDS: OLANZapine ODT 10 MG TAB PO SCH (10:00)
[2022-01-09] MEDS: MULTIVITAMINS, THERA 1 EACH TAB PO SCH ×2 (10:00→10:06)
[2022-01-09] MEDS: NICOTINE 14MG/24HR PATCH TRANSDERM SCH (10:05)
--- NOTE | 2022-01-09 13:57 | P.PN ---
Progress Note - Text Progress Note Date: 01/09/22 Interval History: Patient was seen resting in bed and was agreeable to speak with specifications writer in his room. The patient expresses a desire to not be on any medications. He was informed that since he is under court order he will require medications. The patient displays poor insight into his mental condition and is unable to recall why he was admitted to the psychiatric unit and started on medications in the first place. After significant discussion, the decision was made to keep the patient and transition him to Invega Sustenna due to his inability to understand the importance of medication adherence as he required much encouragement to take his medications orally today. The patient is otherwise not reporting any suicidal or homicidal ideation, intention, and/or plan. He is not reporting any auditory or visual hallucinations. He denies any paranoia but continues to endorse delusional belief that he is unable to swallow and that his teeth are broken. Mental Status Exam: General Appearance: Patient appears to be stated age, with improved hygiene and grooming. Behavior: Patient is lying down in bed with fair eye contact Speech: Patient speech is spontaneous, with normal rate, tone, and volume. Mood/Affect: Mood is "I don't need pills." Affect appears to be Irritable and oppositional today. Suicidality/Homicidality: Patient denies any suicidal or homicidal ideation. Perceptions: Patient does not report any auditory or visual hallucinations. Though content/process: Some somatic delusional thought content is endorsed. Linear and logical otherwise. Memory and concentration: Alert and oriented to person and place. Judgment and insight: Very poor. 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 The patient is now court ordered for medications. -Medications: Discontinue Zyprexa and start patient on Invega with plans to transition the patient to Invega Sustenna. If patient refuses Invega, he will receive Effexor IM. Continue Remeron 30 mg by mouth at bedtime for depression/appetite stimulation -The patient reportedly did well when he was administered Ativan. We will schedule Ativan1 mg by mouth 3 times a day for anxiety. -Encourage this patient to speak with his father to display further improvement. -When necessary Ativan and Haldol for agitation/aggression. -SW on board for discharge planning. Encouraged the patient to participate in milieu.
[2022-01-09] MEDS: LORazepam 1 MG TAB PO SCH ×4 (17:40→21:43)
[2022-01-09] MEDS: PALIPERIDONE 3 MG TAB.ER.24 PO SCH ×2 (21:30→21:37)
[2022-01-09] MEDS: MIRTAZAPINE 15 MG TAB PO SCH ×3 (21:30→21:58)
[2022-01-10] MEDS: NICOTINE 14MG/24HR PATCH TRANSDERM SCH (08:39)
[2022-01-10] MEDS: MULTIVITAMINS, THERA 1 EACH TAB PO SCH (08:39)
[2022-01-10] MEDS: ASCORBIC ACID 500 MG TAB PO SCH (08:39)
[2022-01-10] MEDS: LORazepam 1 MG TAB PO SCH ×3 (08:39→22:33)
--- NOTE | 2022-01-10 11:08 | P.PN ---
Progress Note - Text Progress Note Date: 01/10/22 Interval History: Patient was seen resting in bed and was agreeable to speak with technical proposal writer in his room. the patient is much more friendly and polite today on approach. He is not reporting any suicidal or homicidal ideation, intention, and/or plan. He is not reporting any auditory or visual hallucinations. He denies any paranoia but continues to have some delusional thoughts about his inability to chew or swallow. He has been adherent with his medications but continues to desire not to be on any medications. He reports no issues regarding his sleep or his appetite. He has been eating more. Mental Status Exam: General Appearance: Patient appears to be stated age, with improved hygiene and grooming. Behavior: Patient is lying down in bed with fair eye contact Speech: Patient speech is spontaneous, with normal rate, tone, and volume. Mood/Affect: Mood is "I feel good!" Affect appears to be bright and euthymic. Suicidality/Homicidality: Patient denies any suicidal or homicidal ideation. Perceptions: Patient does not report any auditory or visual hallucinations. Though content/process: Some somatic delusional thought content is endorsed. Linear and logical otherwise. Memory and concentration: Alert and oriented to person and place. Judgment and insight: Mildly improving. 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 The patient is now court ordered for medications. -Medications: Increase Invega to 6 mg by mouth at bedtime with plans to transition the patient to Invega Sustenna. If patient refuses Invega, he will receive Zyprexa IM. Continue Remeron 30 mg by mouth at bedtime for depression/appetite stimulation -Continue Ativan 1 mg by mouth 3 times a day for anxiety and mood. -Encourage this patient to speak with his father to display further improvement. -When necessary Ativan and Haldol for agitation/aggression. -SW on board for discharge planning. Encouraged the patient to participate in milieu.
[2022-01-10] MEDS ORDERED: PALIPERIDONE 6 MG TAB.ER.24 PO SCH (21:00)
[2022-01-10] MEDS: MIRTAZAPINE 15 MG TAB PO SCH (22:33)
[2022-01-11] MEDS: NICOTINE 14MG/24HR PATCH TRANSDERM SCH (08:57)
[2022-01-11] MEDS: MULTIVITAMINS, THERA 1 EACH TAB PO SCH (08:57)
[2022-01-11] MEDS: ASCORBIC ACID 500 MG TAB PO SCH (08:57)
[2022-01-11] MEDS: LORazepam 1 MG TAB PO SCH ×3 (08:59→20:55)
--- NOTE | 2022-01-11 11:56 | P.PN ---
Progress Note - Text Progress Note Date: 01/11/22 Interval History: Patient was seen resting in bed and was agreeable to speak with chief underwriter in his room. The patient is currently reporting that he is feeling okay. He denies any suicidal or homicidal ideation, intention, and/or plan. He denies any auditory or visual's. He reports an increased appetite. The patient does express a continued desire to not take any medications. He does report that he had some difficulty with sleep last night however does not wish to start any medications. He is under court order. He has been intermittently adherent with his Ativan and takes much encouragement to do so. Mental Status Exam: General Appearance: Patient appears to be stated age, with improved hygiene and grooming. Behavior: Patient is lying down in bed with fair eye contact Speech: Patient speech is spontaneous, with normal rate, tone, and volume. Mood/Affect: Mood is "I want some oatmeal" Affect appears to be childlike but euthymic Suicidality/Homicidality: Patient denies any suicidal or homicidal ideation. Perceptions: Patient does not report any auditory or visual hallucinations. Though content/process: Rigid and concrete thinking. Memory and concentration: Alert and oriented to person and place. Judgment and insight: Mildly improving. 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 The patient is now court ordered for medications. -Medications: Increase Invega to 9 mg by mouth at bedtime with plans to transition the patient to Invega Sustenna. If patient refuses Invega, he will receive Zyprexa IM. We will administer Invega Sustenna 234 mg IM tomorrow. Continue Remeron 30 mg by mouth at bedtime for depression/appetite stimulation Continue Ativan 1 mg by mouth 3 times a day for anxiety and mood. -Encourage this patient to speak with his father to display further improvement. -When necessary Ativan and Haldol for agitation/aggression. -SW on board for discharge planning. Encouraged the patient to participate in milieu.
[2022-01-11] MEDS: MIRTAZAPINE 15 MG TAB PO SCH (20:55)
[2022-01-11] MEDS: PALIPERIDONE 3 MG TAB.ER.24 PO SCH (21:04)
[2022-01-12] MEDS: ASCORBIC ACID 500 MG TAB PO SCH (09:09)
[2022-01-12] MEDS: LORazepam 1 MG TAB PO SCH ×4 (09:09→21:17)
[2022-01-12] MEDS: NICOTINE 14MG/24HR PATCH TRANSDERM SCH (09:09)
[2022-01-12] MEDS: MULTIVITAMINS, THERA 1 EACH TAB PO SCH (09:09)
[2022-01-12] MEDS ORDERED: PALIPERIDONE IM 234 MG/1.5 ML SYG IM ONE (12:00)
--- NOTE | 2022-01-12 12:21 | P.PN ---
Subjective Progress Note Date: 01/12/22 Principal diagnosis: Assessment Unspecified mental disorder due to known physiological condition Neurosyphilis Subjective data:/Subjective data Patient was tried to be assessed where he was laying comfortably in his bed However patient started to scream and shout as soon as he woke up Patient made threats about wanting to hurt this therapist and demanded that I get out of his room Patient was loud and belligerent angry and projective and seems to have no insight Further attempt to see the patient was abandoned to avoid any confrontation or any acting out on the patient's part Plan: -Monitor I & Os -Patient continues to meet criteria for inpatient psychiatric admission for symptom stabilization and safety. The patient is now court ordered for medications. -Medications: Continue Invega to 9 mg by mouth at bedtime with plans to transition the patient to Invega Sustenna. If patient refuses Invega, he will receive Zyprexa IM. There are plans for administering Invega Sustenna 234 mg IM today Continue Remeron 30 mg by mouth at bedtime for depression/appetite stimulation Continue Ativan 1 mg by mouth 3 times a day for anxiety and mood. -When necessary Ativan and Haldol for agitation/aggression. -SW on board for discharge planning. Encouraged the patient to participate in milieu. George Posadas M.D. 01/12/2022 Objective - Vital Signs Vital signs: Vital Signs Temp 97.0 F L 01/07/22 08:59 Pulse 103 H 01/07/22 08:59 Resp 18 01/07/22 08:59 BP 111/55 01/06/22 17:09 Pulse Ox 100 01/07/22 08:59 FiO2 - Labs CBC & Chem 7: 01/05/22 07:55 01/05/22 11:25
[2022-01-12] MEDS: MIRTAZAPINE 15 MG TAB PO SCH (21:17)
[2022-01-12] MEDS: PALIPERIDONE 3 MG TAB.ER.24 PO SCH (21:17)
[2022-01-13] MEDS: ASCORBIC ACID 500 MG TAB PO SCH (09:06)
[2022-01-13] MEDS: MULTIVITAMINS, THERA 1 EACH TAB PO SCH (09:06)
[2022-01-13] MEDS: NICOTINE 14MG/24HR PATCH TRANSDERM SCH (09:06)
[2022-01-13] MEDS: LORazepam 1 MG TAB PO SCH ×2 (09:06→15:49)
--- NOTE | 2022-01-13 11:22 | P.PN ---
Subjective Progress Note Date: 01/13/22 Principal diagnosis: Assessment Unspecified mental disorder due to known physiological condition Neurosyphilis Subjective data:/Subjective data Patient was tried to be assessed where he was laying comfortably in his bed However patient started to scream and shout as soon as he woke up which was repeated behavior from previous day Patient demanded that the therapist get out of his room Patient was loud and belligerent angry and projective and seems to have no insight Further attempt to see the patient was abandoned to avoid any confrontation or any acting out on the patient's part Plan: -Monitor I & Os -Patient continues to meet criteria for inpatient psychiatric admission for symptom stabilization and safety. The patient is now court ordered for medications. -Medications: Continue Invega to 9 mg by mouth at bedtime with plans to transition the patient to Invega Sustenna. If patient refuses Invega, he will receive Zyprexa IM. There are plans for administering Invega Sustenna 234 mg IM today Continue Remeron 30 mg by mouth at bedtime for depression/appetite stimulation Continue Ativan 1 mg by mouth 3 times a day for anxiety and mood. -When necessary Ativan and Haldol for agitation/aggression. -SW on board for discharge planning. Encouraged the patient to participate in milieu. George Posadas M.D. 01/13/2022 Objective - Vital Signs Vital signs: Vital Signs Temp 97.0 F L 01/07/22 08:59 Pulse 103 H 01/07/22 08:59 Resp 18 01/07/22 08:59 BP 111/55 01/06/22 17:09 Pulse Ox 100 01/07/22 08:59 FiO2 Intake & Output 01/12/22 01/13/22 01/13/22 18:59 06:59 18:59 Weight 66.6 kg - Labs CBC & Chem 7: 01/05/22 07:55 01/05/22 11:25
[2022-01-14] MEDS: LORazepam 1 MG TAB PO SCH ×5 (00:48→21:20)
[2022-01-14] MEDS: PALIPERIDONE 3 MG TAB.ER.24 PO SCH ×2 (00:48→21:21)
[2022-01-14] MEDS: MIRTAZAPINE 15 MG TAB PO SCH ×2 (00:48→21:20)
[2022-01-14] MEDS: ASCORBIC ACID 500 MG TAB PO SCH (09:33)
[2022-01-14] MEDS: MULTIVITAMINS, THERA 1 EACH TAB PO SCH (09:33)
[2022-01-14] MEDS: NICOTINE 14MG/24HR PATCH TRANSDERM SCH (09:33)
--- NOTE | 2022-01-14 13:58 | P.PN ---
Progress Note - Text Progress Note Date: 01/14/22 Interval History: Patient was seen sorting his room and was agreeable to speak with the instructional writer in his room. Currently, the patient is denying any suicidal or homicidal ideation, intention, and/or plan. He reports no auditory or visual hallucinations. The patient denies any paranoia. He continues to have some delusional thoughts regarding his ability to eat or swallow. However, the patient has been eating and swallowing appropriately. The patient is much more calm and cooperative during the interview. He has not received Invega Sustenna as per pharmacy due to this hospital running out of the medication. We looked to administer the medication once arrives tomorrow and anticipate discharge after monitoring for 12-24 hours post injection. Mental Status Exam: General Appearance: Patient appears to be stated age, with improved hygiene and grooming. Behavior: Patient is lying down in bed with fair eye contact Speech: Patient speech is spontaneous, with normal rate, tone, and volume. Mood/Affect: Mood is "I'm okay." Affect appears to be childlike but euthymic Suicidality/Homicidality: Patient denies any suicidal or homicidal ideation. Perceptions: Patient does not report any auditory or visual hallucinations. Though content/process: Rigid and concrete thinking. Memory and concentration: Alert and oriented to person and place. Judgment and insight: Mildly improving. Assessment Unspecified mental disorder due to known physiological condition Neurosyphilis Plan: -Monitor I & Os -Patient continues to meet criteria for inpatient psychiatric admission for symptom stabilization and safety. The patient is now court ordered for medications. -Medications: Continue Invega 9 mg by mouth at bedtime with plans to transition the patient to Invega Sustenna. If patient refuses Invega, he will receive Zyprexa IM. We will administer Invega Sustenna 234 mg IM tomorrow. As per pharmacy - medication was not available until tomorrow 01/15/2022. Continue Remeron 30 mg by mouth at bedtime for depression/appetite stimulation Continue Ativan 1 mg by mouth 3 times a day for anxiety and mood. -Encourage this patient to speak with his father to display further improvement. -When necessary Ativan and Haldol for agitation/aggression. -SW on board for discharge planning. Encouraged the patient to participate in milieu.
[2022-01-15] MEDS: NICOTINE 14MG/24HR PATCH TRANSDERM SCH (08:28)
[2022-01-15] MEDS: ASCORBIC ACID 500 MG TAB PO SCH (08:28)
[2022-01-15] MEDS: MULTIVITAMINS, THERA 1 EACH TAB PO SCH (08:28)
[2022-01-15] MEDS: LORazepam 1 MG TAB PO SCH ×3 (08:28→20:50)
[2022-01-15] MEDS ORDERED: PALIPERIDONE IM 234 MG/1.5 ML SYG IM ONE (12:00)
--- NOTE | 2022-01-15 13:16 | P.PN ---
Progress Note - Text Progress Note Date: 01/15/22 Interval History: Patient was seen resting in bed and was agreeable to speak with caption writer in his room. The patient is agreeable and receiving the Invega Sustenna today. His current and not reporting any, and/or plan. He is not reporting any auditory or visual hallucinations. He denies any paranoia or other delusions. Patient expresses that he is feeling better. He denies any issues regarding his sleep or his appetite. He is looking forward to going homes that he may address his hygiene and grooming and shaved his canseco. Mental Status Exam: General Appearance: Patient appears to be stated age, with improved hygiene and grooming. Behavior: Patient is lying down in bed with fair eye contact Speech: Patient speech is spontaneous, with normal rate, tone, and volume. Mood/Affect: Mood is "I'm fine." Affect appears to be euthymic with appropriate range Suicidality/Homicidality: Patient denies any suicidal or homicidal ideation. Perceptions: Patient does not report any auditory or visual hallucinations. Though content/process: Rigid and concrete thinking. Memory and concentration: Alert and oriented to person and place. Judgment and insight: Mildly improving. 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 The patient is now court ordered for medications. -Medications: Continue Invega 9 mg by mouth at bedtime with plans to transition the patient to Invega Sustenna. If patient refuses Invega, he will receive Zyprexa IM. Invega Sustenna 234 mg IM will be administered today. Continue Remeron 30 mg by mouth at bedtime for depression/appetite stimulation Continue Ativan 1 mg by mouth 3 times a day for anxiety and mood. -Encourage this patient to speak with his father to display further improvement. -When necessary Ativan and Haldol for agitation/aggression. -SW on board for discharge planning. Encouraged the patient to participate in milieu.
[2022-01-15] MEDS: OLANZapine 10 MG VIAL IM PRN (20:42)
[2022-01-15] MEDS: MIRTAZAPINE 15 MG TAB PO SCH (20:50)
[2022-01-15] MEDS: PALIPERIDONE 3 MG TAB.ER.24 PO SCH (20:50)
[2022-01-16 09:10] VITALS: BP 97/59; PULSE 63
[2022-01-16] MEDS: NICOTINE 14MG/24HR PATCH TRANSDERM SCH (09:10)
[2022-01-16] MEDS: MULTIVITAMINS, THERA 1 EACH TAB PO SCH (09:10)
[2022-01-16] MEDS: LORazepam 1 MG TAB PO SCH (09:10)
[2022-01-16] MEDS: ASCORBIC ACID 500 MG TAB PO SCH (09:10)
--- NOTE | 2022-01-16 11:29 | P.DS ---
Providers Date of admission: 12/26/21 21:29 Expected date of discharge: 01/16/22 Attending physician: Mamadou Bermudez MD Consults: 12/26/21 20:23 Consult Physician Routine Consulting Provider: Jesse Cummings Consult Reason/Comments: Medical H&P Do you want consulting provider notified?: Yes, Notify in am Primary care physician: Stated None - Discharge Diagnosis(es) (1) Unspecified mental disorder due to known physiological condition Current Visit: Yes Status: Acute Priority: High (2) Neurosyphilis Current Visit: No Status: Chronic Priority: High Hospital Course: Admission HPI: Patient is a single, unemployed 46-year-old male with significant history of neurosyphilis presented to the hospital on 12/22/2021, brought into the hospital for altered mental status. Patient presented to the hospital on 12/22/2021, brought in for altered mental status. The patient was medically admitted for further evaluation of his history of neurosyphilis. The patient was petitioned by his father for mental health treatment as the patient was refusing any medications despite displaying significant decline in behavior including increasing agitation, confusion, and this significantly decreased appetite and thirst. The patient was subsequently admitted to the psychiatric unit on 12/27/2021. Approximately 4 weeks prior to this admission, the patient's father received a call from the patient's friend that they have been unable to properly take care of the patient. The patient was staying in [place] and his father traveled to [place] to bring his son home to [place]. The patient has been diagnosed and worked up for neurosyphilis and dementia at [facility] in [place]. He received 4 weeks of penicillin treatment through a PICC line for management of neurosyphilis. Upon evaluation on the psychiatric unit, the patient continues to endorse significant symptoms of hopelessness, helplessness, somatic delusions, poor hyg iene and grooming, and refusal to engage in any treatment. The patient is alert and oriented to person, place, and time. He states that he does not want to take any medications because "he can't." He states that he cannot chew or swallow anything because his teeth are broken. The patient's teeth are intact. The patient also states that he is unable to sleep. Despite his complaints of insomnia, the patient does not want to take any medications to help address this. A second clinical certificate has been filled out. Hospital course: Upon admission to the unit patient was initially uncooperative with staff, nonadherent with medications, not eating, and displaying very poor hygiene and grooming. The patient was therefore certified in order to administer medications against his will due to the severity of his mental illness impeding his judgment and insight. Out of concern for the patient's general medical health, this treatment team pushed to have court earlier date. The patient was court ordered for the administration of psychiatric medications and continuation of mental health treatment on 01/04/2022. The patient was then started on a regimen of Zyprexa Zydis and Remeron in order to address his severe mental illness, low mood, and delusional thought processes (in particular the ability to eat or drink). Eventually through the admission medications and encouragement, the patient began eating and drinking appropriately. He also had displayed improvement in his hydration and grooming. Initially, the plan was to have the patient discharged however he continued to express his hesitancy in taking his medications. The plan was therefore changed to transition the patient from Zyprexa to Invega in order to give him the long-acting injectable medication. The patient received Invega Sustenna 234 mg IM on 01/15/2022. On the day of discharge, the patient is not reporting any suicidal or homicidal ideation, intention, and/or plan. He is not reporting any auditory or visual hallucinations. He denies any paranoia or other delusions. He continues to display some childlike mannerisms however the acute issues of him not eating, being very somatically preoccupied, and appearing psychomotorly retarded have improved significantly. There is question that the patient may require long- term housing in the near future however this is to be determined in the outpati ent setting. The patient was counseled at length and he points medication adherence and appropriate outpatient follow-up. The patient is currently not using any substances however was counseled at great length on abstaining must substances including alcohol and marijuana. Prior to discharge, family meeting will be linked with medical social consultant to answer any questions and ensure safety. Mental status exam: General Appearance: Patient appears to be stated age is alert, pleasant, and cooperative. Patient is in no acute distress and has fair hygiene and grooming Behavior: Patient is calmly seated without any agitated behavior. Speech: Patient's speech is fluent and nonpressured. Mood/Affect: Patient reports their mood is "I'm okay", affect is congruent and euthymic. Slightly childlike. Suicidality/Homicidality: Patient denies having any suicidal or homicidal ideation intent or plan. Perceptions: Patient denies any auditory or visual hallucinations. Though content/process: There is no evidence of any delusional thought content and thought process is linear and goal-directed. Memory and concentration: AOX3, grossly intact for the purposes of this session. Can spell "WORLD" backwards correctly. Judgment and insight: Improved with guarded prognosis Laboratory Results WBC 11.3 k/uL (3.8-10.6) H 01/05/22 07:55 RBC 5.18 m/uL (4.30-5.90) 01/05/22 07:55 Hgb 16.9 gm/dL (13.0-17.5) 01/05/22 07:55 Hct 50.2 % (39.0-53.0) 01/05/22 07:55 MCV 96.8 fL (80.0-100.0) 01/05/22 07:55 MCH 32.6 pg (25.0-35.0) 01/05/22 07:55 MCHC 33.6 g/dL (31.0-37.0) 01/05/22 07:55 RDW 13.5 % (11.5-15.5) 01/05/22 07:55 Plt Count 198 k/uL (150-450) 01/05/22 07:55 MPV 8.1 01/05/22 07:55 Neutrophils % 59 % 01/05/22 07:55 Lymphocytes % 31 % 01/05/22 07:55 Monocytes % 6 % 01/05/22 07:55 Eosinophils % 2 % 01/05/22 07:55 Basophils % 1 % 01/05/22 07:55 Neutrophils # 6.6 k/uL (1.3-7.7) 01/05/22 07:55 Lymphocytes # 3.5 k/uL (1.0-4.8) 01/05/22 07:55 Monocytes # 0.7 k/uL (0-1.0) 01/05/22 07:55 Eosinophils # 0.2 k/uL (0-0.7) 01/05/22 07:55 Basophils # 0.1 k/uL (0-0.2) 01/05/22 07:55 Sodium 138 mmol/L (137-145) 01/05/22 11:25 Potassium 3.8 mmol/L (3.5-5.1) 01/05/22 11:25 Chloride 99 mmol/L (98-107) 01/05/22 11:25 Carbon Dioxide 31 mmol/L (22-30) H 01/05/22 11:25 Anion Gap 8 mmol/L 01/05/22 11:25 BUN 22 mg/dL (9-20) H 01/05/22 11:25 Creatinine 1.07 mg/dL (0.66-1.25) 01/05/22 11:25 Est GFR (CKD-EPI)AfAm >90 (>60 ml/min/1.73 sqM) 01/05/22 11:25 Est GFR (CKD-EPI)NonAf 82 (>60 ml/min/1.73 sqM) 01/05/22 11:25 Glucose 97 mg/dL (74-99) 01/05/22 11:25 Calcium 9.5 mg/dL (8.4-10.2) 01/05/22 11:25 Total Bilirubin 1.1 mg/dL (0.2-1.3) 01/04/22 15:01 AST 35 U/L (17-59) 01/04/22 15:01 ALT 23 U/L (4-49) 01/04/22 15:01 Alkaline Phosphatase 61 U/L (38-126) 01/04/22 15:01 Total Protein 7.8 g/dL (6.3-8.2) 01/04/22 15:01 Albumin 5.2 g/dL (3.5-5.0) H 01/04/22 15:01 Allergies Allergy/AdvReac Type Severity Reaction Status Date / Time No Known Allergies Allergy Verified 12/22/21 21:18 Vital Signs Temp 97.0 F L 01/07/22 08:59 Pulse 63 01/16/22 09:09 Resp 18 01/07/22 08:59 BP 97/59 01/16/22 09:09 Pulse Ox 100 01/07/22 08:59 FiO2 Impression: Unspecified mental disorder due to known physiological condition Neurosyphilis Plan: -Continue with discharge today as patient has improved and stabilized psychiatrically and is not currently an imminent threat to himself and/or others. Patient will remain at chronically elevated risk due to the neurocognitive disorder as a result of neurosyphyllis. -Continue medications: Ativan 1 mg by mouth 3 times a day when necessary for agitation Remeron 30 mg by mouth at bedtime for depression/insomnia/obstructive stimulation Invega Sustenna 156 mg IM is due on 01/22/2022. He received the first loading dose of 234 mg IM on 01/15/2022. -Patient was counseled on the need for medication compliance and appropriate follow-up at mental health and also primary care for medical issues. Patient verbalized understanding and agreed. -Social work to arrange for and conduct family meeting to ensure safety upon discharge and answer any questions/concerns. Social work also to arrange for patients follow up appointments with [facility] for psychiatric care along with follow up with primary care provider. The patient is also advised to follow-up with neurology. -Patient counseled on abstaining from recreational drugs and marijuana and alcohol. Was informed/educated on the adverse effects on their physical and mental health. Patient verbally agreed and understood. -Patient was instructed to return to the hospital or seek immediate medical care if their psychiatric or medical symptoms do worsen or reoccur. -Psychoeducation and supportive therapy provided to patient. Risks and benefits of pharmacological treatment versus the risks and benefits of nontreatment weight and discussed. Informed consent discussion held. Common side effects of psychotropics discussed such as, but not limited to headache, GI disturbance, sexual dysfunction, movement disorders, sedation, and orthostatic hypotension. Life threatening and blackbox warnings of prescribed medications also discussed. Potential risks of operating a vehicle or heavy machinery discussed with patient at length. Advised on importance of compliance and a reliable and responsible manner. Patient advised to review FDA consumer labeling of all medications prior to taking. Patient verbalized understanding of potential risks, and agrees with current treatment plan. Patient advised to medically contact physician/emergency personnel if any acute changes in condition occur. Patient Condition at Discharge: Stable Plan - Discharge Summary New Discharge Prescriptions: New LORazepam [Ativan] 1 mg PO TID PRN 15 Days #45 tab PRN Reason: Agitation Or Acute Anxiety Mirtazapine [Remeron] 30 mg PO HS 30 Days tab Paliperidone IM [Invega Sustenna] 156 mg IM QMONTHLY #1 each Discharge Medication List LORazepam [Ativan] 1 mg PO TID PRN 15 Days #45 tab 01/16/22 [Rx] Mirtazapine [Remeron] 30 mg PO HS 30 Days tab 01/16/22 [Rx] Paliperidone IM [Invega Sustenna] 156 mg IM QMONTHLY #1 each 01/16/22 [Rx] Follow up Appointment(s)/Referral(s): HAKAN Romero [Other] - 01/22/22 2:00 pm Gibran Dee MD [Medical Doctor] - 1 Week (Neurologist) Pooja Rajan MD [STAFF PHYSICIAN] - 1 Week (Infectious disease doctor for possible neurosyphilis) Patient Instructions/Handouts: Dehydration (DC), Syphilis (DC), Help Prevent Suicide (DC), Encephalopathy (DC), Suicide Prevention (DC) Activity/Diet/Wound Care/Special Instructions: Activity and diet as tolerated. Avoid the use of street drugs and alcohol. Take all medications as prescribed. When you are in need of refills on your medications please contact your medical provider and/or outpatient psychiatrist to have this done. Please go to scheduled outpatient appointment for aftercare treatment. If symptoms return or become worse, call the crisis line at and/or go to the nearest emergency room for evaluation Discharge Disposition: HOME SELF-CARE
== END 2022-01-16 14:10 | disposition home or self-care (01) | DRG 57 ==
LOC: 3MHU 21:29
PROVIDERS: ADMIT Psychiatry & Neurology Psychiatry; ATTEND Psychiatry & Neurology Psychiatry
DX: A52.3 Neurosyphilis, unspecified (principal); F02.80 Dementia in other diseases classified elsewhere, unspecified severity, without behavioral disturbance, psychotic disturbance, mood disturbance, and anxiety; E86.0 Dehydration; F41.9 Anxiety disorder, unspecified; G47.00 Insomnia, unspecified; Z87.891 Personal history of nicotine dependence; Z91.14 Patient's other noncompliance with medication regimen; Z91.19 Patient's noncompliance with other medical treatment and regimen
CPT/HCPCS: 80048; 80053; 85025